=== PATIENT | female | born 1960 | race Caucasian/White ===

== ENCOUNTER 2019-02-23 11:01 | Inpatient (IN) | payer OTHER, SELFPAY ==
[2019-02-23 11:12] VITALS: BP 189/79; PULSE 83; RESP 20; TEMP 37.1; O2SAT 97
--- NOTE | 2019-02-23 11:18 | ED.ABDPAIN ---
HPI - Abdominal Pain <Marley Brown PA-C - Last Filed: 02/23/19 20:22> General Chief Complaint: Abdominal Pain Stated Complaint: nausea Time Seen by Provider: 02/23/19 11:05 Source: patient Mode of arrival: ambulatory Limitations: no limitations History of Present Illness HPI narrative: This 58-year-old female comes to ED due to epigastric pain and nausea. She states that she has some chronic epigastric discomfort (points to xiphoid area distal), which she describes as a pressure. Last night however after eating fast food, she states she had more persistent pain in that area and had nausea. She eventually forced herself to vomit thinking she would feel better, brought up some food stuck, 2nd time bilious. She states that she still has nausea today, vomited water once, 2nd time bilious material which she thinks was due to being in traffic. She has not eaten today. She denies pain in her chest or dyspnea. Denies any new pain or swelling in her extremities. She states that the discomfort she typically feels is like a pressure sensation but this is more painful and persistent. She denies any exacerbating or alleviating features. She has felt chilled, has not noted fever. She denies any change in bowel movements. She denies any urinary symptoms. She denies any rash, recent illness, travel or known exposures or other complaints on systems review. She denies any ongoing medical problems or cardiac history. Related Data Home Medications Medication Instructions Recorded Confirmed Calcium 1 tab PO DAILY 02/23/19 02/23/19 Vitamin D3 1 tab PO DAILY 02/23/19 02/23/19 aspirin 81 mg PO DAILY 02/23/19 02/23/19 iron 1 tab PO DAILY 02/23/19 02/23/19 Allergies Allergy/AdvReac Type Severity Reaction Status Date / Time hydrochlorothiazide AdvReac Mild Verified 02/23/19 14:06 Review of Systems <Marley Brown PA-C - Last Filed: 02/23/19 20:22> Review of Systems ROS Unobtainable: All systems reviewed & are unremarkable except as noted in HPI and below PFSH <CHI Carroll Last Filed: 02/23/19 20:22> Medical History No chronic problems (Chronic) Surgical History History of sleeve gastrectomy (Resolved) Status post total hysterectomy and bilateral salpingo-oophorectomy (BSO) (Resolved) Social History Smoking Status: Current some day smoker Social History household members: spouse Smoking Status: Current some day smoker Comment: Rare EtOH, no THC or street drugs Exam <Marley Brown PA-C - Last Filed: 02/23/19 20:22> Narrative Exam Narrative: GENERAL APPEARANCE: Patient sitting comfortably, in no distress. HEENT: PERRL, EOMI, no scleral icterus, conjunctivae pink, normal oropharynx NECK: Supple LUNGS: Clear to auscultation bilaterally. HEART: Rate and rhythm regular, normal S1 and S2, no S3 or S4. ABDOMEN: Soft, nondistended, bowel sounds present x 4 quadrants, no masses palpable, no hepatosplenomegaly. Tender along the midline from xiphoid distal to the umbilicus as well as right upper quadrant, +Napier's sign, no lower quadrant or left-sided tenderness EXTREMITIES: No edema, no calf tender DERMATOLOGIC: No jaundice or exanthem NEUROLOGIC: Alert and oriented with normal speech and coordination Initial Vital Signs Initial Vital Signs: Vital Signs Temperature 98.7 F 02/23/19 11:12 Pulse Rate 83 02/23/19 11:12 Respiratory Rate 20 02/23/19 11:12 Blood Pressure 189/79 H 02/23/19 11:12 Pulse Oximetry 97 02/23/19 11:12 <Sidra Hooks DO - Last Filed: 02/24/19 07:35> Initial Vital Signs Initial Vital Signs: Vital Signs Temperature 98.7 F 02/23/19 11:12 Pulse Rate 83 02/23/19 11:12 Respiratory Rate 20 02/23/19 11:12 Blood Pressure 189/79 H 02/23/19 11:12 Pulse Oximetry 97 02/23/19 11:12 Course <Marley Brown PA-C - Last Filed: 02/23/19 20:22> Additional Information: Dr. Cast station gateman for surgery has been to ED to evaluate patient, plans yenny for tomorrow, patient will be admitted to his service. Pain is currently well controlled and patient has not had any recurrent vomiting. Orders Ordered: ED Orders 02/24/19 04:44 Hepatic (Liver) Panel DAILY Lipase DAILY Hydromorphone HCl (Dilaudid) 0.5 mg IV Q4H PRN PRN Reason: Pain, Severe (7-10) Last Admin: 02/23/19 16:27 Dose: 0.5 mg Ampicillin Sodium/Sulbactam (Sodium 3 gm/ Sodium Chloride) 100 mls @ 100 mls/hr IV Q8H WILLIS Last Infusion: 02/24/19 05:56 Dose: 0 mls/hr Admin: 02/24/19 03:55 Dose: 100 mls/hr Infusion: 02/23/19 20:43 Dose: 100 mls/hr Admin: 02/23/19 19:43 Dose: 100 mls/hr Sodium Chloride (Normal Saline 0.9%) 1,000 mls @ 84 mls/hr IV CONT WILLIS Last Admin: 02/24/19 05:56 Dose: 84 mls/hr Infusion: 02/24/19 03:25 Dose: 84 mls/hr Admin: 02/23/19 15:30 Dose: 84 mls/hr Ondansetron HCl (Zofran) 4 mg IV Q6HR PRN PRN Reason: Nausea And Vomiting Discontinued Medications Al Hydrox/Mg Hydrox/Simethicone 20 ml/ Lidocaine HCl 15 ml 0 ml PO NOW ONE Stop: 02/23/19 11:19 Last Admin: 02/23/19 11:43 Dose: 35 ml Sodium Chloride (Normal Saline 0.9%) 1,000 mls @ 1,000 mls/hr IV BOLUS ONE Stop: 02/23/19 12:17 Last Infusion: 02/23/19 15:29 Dose: 0 mls/hr Infusion: 02/23/19 13:53 Dose: 1,000 mls/hr Admin: 02/23/19 11:43 Dose: 1,000 mls/hr Ampicillin Sodium/Sulbactam (Sodium 1.5 gm/ Sodium Chloride) 100 mls @ 100 mls/hr IV NOW ONE Stop: 02/23/19 12:54 Last Infusion: 02/23/19 15:29 Dose: 0 mls/hr Admin: 02/23/19 13:50 Dose: 100 mls/hr Ketorolac Tromethamine (Toradol) 30 mg IV NOW ONE Stop: 02/23/19 11:19 Last Admin: 02/23/19 11:43 Dose: 30 mg Ondansetron HCl (Zofran) 4 mg IV NOW ONE Stop: 02/23/19 11:19 Last Admin: 02/23/19 11:43 Dose: 4 mg Vital Signs - 8 hr 02/24/19 01:30 02/24/19 05:01 02/24/19 07:26 Temperature 98.3 F 97.6 F 97.5 F L Pulse Rate 84 68 65 Respiratory Rate 16 16 18 Blood Pressure 140/52 L 148/63 H 157/64 H Pulse Oximetry 97 95 95 <Sidra Hooks DO - Last Filed: 02/24/19 07:35> Orders Ordered: ED Orders 02/24/19 04:44 Hepatic (Liver) Panel DAILY Lipase DAILY Hydromorphone HCl (Dilaudid) 0.5 mg IV Q4H PRN PRN Reason: Pain, Severe (7-10) Last Admin: 02/23/19 16:27 Dose: 0.5 mg Ampicillin Sodium/Sulbactam (Sodium 3 gm/ Sodium Chloride) 100 mls @ 100 mls/hr IV Q8H [facility] Last Infusion: 02/24/19 05:56 Dose: 0 mls/hr Admin: 02/24/19 03:55 Dose: 100 mls/hr Infusion: 02/23/19 20:43 Dose: 100 mls/hr Admin: 02/23/19 19:43 Dose: 100 mls/hr Sodium Chloride (Normal Saline 0.9%) 1,000 mls @ 84 mls/hr IV CONT WILLIS Last Admin: 02/24/19 05:56 Dose: 84 mls/hr Infusion: 02/24/19 03:25 Dose: 84 mls/hr Admin: 02/23/19 15:30 Dose: 84 mls/hr Ondansetron HCl (Zofran) 4 mg IV Q6HR PRN PRN Reason: Nausea And Vomiting Discontinued Medications Al Hydrox/Mg Hydrox/Simethicone 20 ml/ Lidocaine HCl 15 ml 0 ml PO NOW ONE Stop: 02/23/19 11:19 Last Admin: 02/23/19 11:43 Dose: 35 ml Sodium Chloride (Normal Saline 0.9%) 1,000 mls @ 1,000 mls/hr IV BOLUS ONE Stop: 02/23/19 12:17 Last Infusion: 02/23/19 15:29 Dose: 0 mls/hr Infusion: 02/23/19 13:53 Dose: 1,000 mls/hr Admin: 02/23/19 11:43 Dose: 1,000 mls/hr Ampicillin Sodium/Sulbactam (Sodium 1.5 gm/ Sodium Chloride) 100 mls @ 100 mls/hr IV NOW ONE Stop: 02/23/19 12:54 Last Infusion: 02/23/19 15:29 Dose: 0 mls/hr Admin: 02/23/19 13:50 Dose: 100 mls/hr Ketorolac Tromethamine (Toradol) 30 mg IV NOW ONE Stop: 02/23/19 11:19 Last Admin: 02/23/19 11:43 Dose: 30 mg Ondansetron HCl (Zofran) 4 mg IV NOW ONE Stop: 02/23/19 11:19 Last Admin: 02/23/19 11:43 Dose: 4 mg Vital Signs - 8 hr 02/24/19 01:30 02/24/19 05:01 02/24/19 07:26 Temperature 98.3 F 97.6 F 97.5 F L Pulse Rate 84 68 65 Respiratory Rate 16 16 18 Blood Pressure 140/52 L 148/63 H 157/64 H Pulse Oximetry 97 95 95 MDM - Abdominal Pain <Marley Brown PA-C - Last Filed: 02/23/19 20:22> Lab Data Attestation: I reviewed the patient's lab results. Result diagrams: 02/23/19 11:25 02/23/19 11:25 Lab Results 02/23/19 02/23/19 02/23/19 Range/Units 11:25 11:25 11:25 WBC 8.5 (4.5-11.0) X10^3/uL RBC 4.88 (4.0-5.2) X10^6/uL Hgb 14.7 (12.0-16.0) g/dL Hct 44.6 (36-46) % MCV 91.4 (80-100) fL MCH 30.2 (26-34) PG MCHC 33.1 (30-36) % RDW 13.1 (11.6-14.8) % Plt Count 246 (150-400) X10^3/uL Neut % (Auto) 86.3 H (50-75) % Lymph % (Auto) 7.8 L (25-40) % [place] % (Auto) 5.5 (3-14) % Eos % (Auto) 0.0 L (2-4) % Baso % (Auto) 0.4 (0-2) % Neut # (Auto) 7300 H (5296-6427) /uL Lymph # (Auto) 700 L (6528-9728) /uL [place] # (Auto) 500 (0-900) /uL Eos # (Auto) 0 (0-450) /uL Baso # (Auto) 0 (0-100) /uL Sodium 140 (137-145) mmol/L Potassium 3.8 (3.4-5.1) mmol/L Chloride 103 (98-107) mmol/L Carbon Dioxide 29 (22-32) mmol/L BUN 12 (7-17) mg/dL Creatinine 0.70 (0.52-1.04) mg/dL Estimated GFR > 60.0 (>60) mL/min BUN/Creatinine Ratio 17.1 (6-22) Glucose 114 H (80-110) mg/dL Calcium 9.2 (8.4-10.2) mg/dL Total Bilirubin 0.4 (0.2-1.3) mg/dL Conjugated Bilirubin (0.0-0.3) md/dL Unconjugated Bilirubin (0.0-1.1) mg/dL AST 26 (14-36) IU/L ALT 26 (9-52) IU/L Alkaline Phosphatase 55 (38-126) U/L Total Creatine Kinase 81 (30-135) U/L CK-MB (CK-2) TNP CK-MB (CK-2) Rel Index TNP Troponin I < 0.012 (0.01-0.034) ng/mL Total Protein 6.9 (6.3-8.2) g/dL Albumin 4.2 (3.5-5.0) g/dL Globulin 2.7 (1.7-4.1) g/dL Albumin/Globulin Ratio 1.6 (1.0-2.8) Amylase 97 (30-110) U/L Lipase 1341 H (23-300) U/L Urine RBC (0-5/HPF) Urine WBC (0-5/HPF) Urine Bacteria (None) Ur Culture Indicated? Micro UA Comment Nasal Screen MRSA (PCR) (Negative) 02/23/19 02/23/19 02/24/19 Range/Units 12:05 14:00 04:44 WBC (4.5-11.0) X10^3/uL RBC (4.0-5.2) X10^6/uL Hgb (12.0-16.0) g/dL Hct (36-46) % MCV (80-100) fL MCH (26-34) PG MCHC (30-36) % RDW (11.6-14.8) % Plt Count (150-400) X10^3/uL Neut % (Auto) (50-75) % Lymph % (Auto) (25-40) % [place] % (Auto) (3-14) % Eos % (Auto) (2-4) % Baso % (Auto) (0-2) % Neut # (Auto) (4734-6100) /uL Lymph # (Auto) (9096-9001) /uL [place] # (Auto) (0-900) /uL Eos # (Auto) (0-450) /uL Baso # (Auto) (0-100) /uL Sodium (137-145) mmol/L Potassium (3.4-5.1) mmol/L Chloride (98-107) mmol/L Carbon Dioxide (22-32) mmol/L BUN (7-17) mg/dL Creatinine (0.52-1.04) mg/dL Estimated GFR (>60) mL/min BUN/Creatinine Ratio (6-22) Glucose (80-110) mg/dL Calcium (8.4-10.2) mg/dL Total Bilirubin 0.5 (0.2-1.3) mg/dL Conjugated Bilirubin 0.0 (0.0-0.3) md/dL Unconjugated Bilirubin 0.4 (0.0-1.1) mg/dL AST 21 (14-36) IU/L ALT 25 (9-52) IU/L Alkaline Phosphatase 44 (38-126) U/L Total Creatine Kinase (30-135) U/L CK-MB (CK-2) CK-MB (CK-2) Rel Index Troponin I (0.01-0.034) ng/mL Total Protein 5.5 L (6.3-8.2) g/dL Albumin 3.1 L (3.5-5.0) g/dL Globulin 2.4 (1.7-4.1) g/dL Albumin/Globulin Ratio 1.3 (1.0-2.8) Amylase (30-110) U/L Lipase 68 D (23-300) U/L Urine RBC None seen (0-5/HPF) Urine WBC None seen (0-5/HPF) Urine Bacteria None seen (None) Ur Culture Indicated? Cult not indicated Micro UA Comment Microscopic normal Nasal Screen MRSA (PCR) Negative for mrsa (Negative) Point of care testing: Urine Dip Bedside Urine Glucose Negative Bedside Urine Bilirubin - Negative Bedside Urine Ketone ++ 40 Urine Specific [place] 1.025 Bedside Urine Occult Blood - Negative Bedside Urine pH 6.0 Bedside Urine Protein +/- 15 Bedside Urine Urobilinogen +/- 1mg Bedside Urine Nitrite - Negative Bedside Urine Leukocytes - Negative Esterase Imaging Data US - abdomen: Radiologist's impression: Katherin Rizvi 58 F 1960 [place] [address] Ultrasound Report Signed Patient: Katherin Rizvi LMR#: [id number] : 1960cct:[id number] Age/Sex: 58 / FDate of Service: 02/23/19 Loc: ED Accession Number: [id number] Procedure: US abdomen limited Ordering Provider: Marley Brown P.A-C PROCEDURE: US ABDOMEN LIMITED INDICATIONS: VOMITING, EPIGASTRIC/RUQ PAIN TECHNIQUE: Real-time focused scanning was performed of the abdomen, with image documentation. COMPARISON: None. FINDINGS: There is a stone within the gallbladder neck measuring up to 2.7 cm, and also sludge may be present a small degree. The gallbladder wall is abnormally thickened at 4.2 L. The liver is mildly enlarged at 19.2 cm craniocaudad. IMPRESSION: Impacted large stone measuring up to 2.7 cm at the gallbladder neck area, with evidence of mild acute cholecystitis. Mild hepatomegaly. Dictated by: Connor Hu M.D. on 02/23/2019 at 12:43 Approved by: Connor Hu M.D. on 02/23/2019 at 12:43 Chest x-ray: Radiologist's impression: [address] [address] XRay Report Signed Patient: Katherin Rizvi LMR#: [id number] : 9Acct:[id number] Age/Sex: 58 / FDate of Service: 02/23/19 Loc: ED Accession Number: [id number] Procedure: XR acute abdomen series Ordering Provider: Marley Brown P.A-C PROCEDURE: XR ACUTE ABDOMEN SERIES INDICATIONS: vomiting epigastric pain TECHNIQUE: One view chest and two views of the abdomen were acquired. COMPARISON: None. FINDINGS: Surgical changes and devices: None. Chest: Lungs are clear. Heart size is normal. No pleural effusions. No pneumoperitoneum. Abdomen: Bowel gas pattern is normal. No suspicious calcifications. Visualized solid organ contours appear normal. Bones: No suspicious bony lesions. IMPRESSION: Normal for age, source of current epigastric pain symptoms is not seen. Dictated by: Connor Hu M.D. on 02/23/2019 at 12:42 Approved by: Connor Hu M.D. on 02/23/2019 at 12:42 ECG Data Attestation: I personally reviewed and interpreted this ECG as follows: (Sinus bradycardia, rate 57, normal axis) <Sidra Hooks DO - Last Filed: 02/24/19 07:35> Lab Data Lab Results 02/23/19 02/23/19 02/23/19 Range/Units 11:25 11:25 11:25 WBC 8.5 (4.5-11.0) X10^3/uL RBC 4.88 (4.0-5.2) X10^6/uL Hgb 14.7 (12.0-16.0) g/dL Hct 44.6 (36-46) % MCV 91.4 (80-100) fL MCH 30.2 (26-34) PG MCHC 33.1 (30-36) % RDW 13.1 (11.6-14.8) % Plt Count 246 (150-400) X10^3/uL Neut % (Auto) 86.3 H (50-75) % Lymph % (Auto) 7.8 L (25-40) % [place] % (Auto) 5.5 (3-14) % Eos % (Auto) 0.0 L (2-4) % Baso % (Auto) 0.4 (0-2) % Neut # (Auto) 7300 H (9589-7431) /uL Lymph # (Auto) 700 L (0819-4896) /uL [place] # (Auto) 500 (0-900) /uL Eos # (Auto) 0 (0-450) /uL Baso # (Auto) 0 (0-100) /uL Sodium 140 (137-145) mmol/L Potassium 3.8 (3.4-5.1) mmol/L Chloride 103 (98-107) mmol/L Carbon Dioxide 29 (22-32) mmol/L BUN 12 (7-17) mg/dL Creatinine 0.70 (0.52-1.04) mg/dL Estimated GFR > 60.0 (>60) mL/min BUN/Creatinine Ratio 17.1 (6-22) Glucose 114 H (80-110) mg/dL Calcium 9.2 (8.4-10.2) mg/dL Total Bilirubin 0.4 (0.2-1.3) mg/dL Conjugated Bilirubin (0.0-0.3) md/dL Unconjugated Bilirubin (0.0-1.1) mg/dL AST 26 (14-36) IU/L ALT 26 (9-52) IU/L Alkaline Phosphatase 55 (38-126) U/L Total Creatine Kinase 81 (30-135) U/L CK-MB (CK-2) TNP CK-MB (CK-2) Rel Index TNP Troponin I < 0.012 (0.01-0.034) ng/mL Total Protein 6.9 (6.3-8.2) g/dL Albumin 4.2 (3.5-5.0) g/dL Globulin 2.7 (1.7-4.1) g/dL Albumin/Globulin Ratio 1.6 (1.0-2.8) Amylase 97 (30-110) U/L Lipase 1341 H (23-300) U/L Urine RBC (0-5/HPF) Urine WBC (0-5/HPF) Urine Bacteria (None) Ur Culture Indicated? Micro UA Comment Nasal Screen MRSA (PCR) (Negative) 02/23/19 02/23/19 02/24/19 Range/Units 12:05 14:00 04:44 WBC (4.5-11.0) X10^3/uL RBC (4.0-5.2) X10^6/uL Hgb (12.0-16.0) g/dL Hct (36-46) % MCV (80-100) fL MCH (26-34) PG MCHC (30-36) % RDW (11.6-14.8) % Plt Count (150-400) X10^3/uL Neut % (Auto) (50-75) % Lymph % (Auto) (25-40) % [place] % (Auto) (3-14) % Eos % (Auto) (2-4) % Baso % (Auto) (0-2) % Neut # (Auto) (7864-6817) /uL Lymph # (Auto) (8337-6922) /uL [place] # (Auto) (0-900) /uL Eos # (Auto) (0-450) /uL Baso # (Auto) (0-100) /uL Sodium (137-145) mmol/L Potassium (3.4-5.1) mmol/L Chloride (98-107) mmol/L Carbon Dioxide (22-32) mmol/L BUN (7-17) mg/dL Creatinine (0.52-1.04) mg/dL Estimated GFR (>60) mL/min BUN/Creatinine Ratio (6-22) Glucose (80-110) mg/dL Calcium (8.4-10.2) mg/dL Total Bilirubin 0.5 (0.2-1.3) mg/dL Conjugated Bilirubin 0.0 (0.0-0.3) md/dL Unconjugated Bilirubin 0.4 (0.0-1.1) mg/dL AST 21 (14-36) IU/L ALT 25 (9-52) IU/L Alkaline Phosphatase 44 (38-126) U/L Total Creatine Kinase (30-135) U/L CK-MB (CK-2) CK-MB (CK-2) Rel Index Troponin I (0.01-0.034) ng/mL Total Protein 5.5 L (6.3-8.2) g/dL Albumin 3.1 L (3.5-5.0) g/dL Globulin 2.4 (1.7-4.1) g/dL Albumin/Globulin Ratio 1.3 (1.0-2.8) Amylase (30-110) U/L Lipase 68 D (23-300) U/L Urine RBC None seen (0-5/HPF) Urine WBC None seen (0-5/HPF) Urine Bacteria None seen (None) Ur Culture Indicated? Cult not indicated Micro UA Comment Microscopic normal Nasal Screen MRSA (PCR) Negative for mrsa (Negative) Point of care testing: Urine Dip Bedside Urine Glucose Negative Bedside Urine Bilirubin - Negative Bedside Urine Ketone ++ 40 Urine Specific [place] 1.025 Bedside Urine Occult Blood - Negative Bedside Urine pH 6.0 Bedside Urine Protein +/- 15 Bedside Urine Urobilinogen +/- 1mg Bedside Urine Nitrite - Negative Bedside Urine Leukocytes - Negative Esterase Discharge Plan Departure Patient Disposition: Admitted As Inpatient Clinical Impression: Cholelithiasis and acute cholecystitis with obstruction Discharge Date/Time: 02/23/19 13:55 Interventions: ED Discharge Assessment Last Done: 02/23/19 13:54 Admit Date/Time: 02/23/19 13:25 Admit Provider: Kris Cast <Sidra Hooks DO - Last Filed: 02/24/19 07:35> Cosign ED Attending Alexeyature Attestation: I was immediately available in the department for consultation. Documentation has been reviewed. I agree with assessment and plan.
--- NOTE | 2019-02-23 11:23 | ED_ITS ---
HPI - Abdominal Pain <Marley Brown PA-C - Last Filed: 02/23/19 20:22> General Chief Complaint: Abdominal Pain Stated Complaint: nausea Time Seen by Provider: 02/23/19 11:05 Source: patient Mode of arrival: ambulatory Limitations: no limitations History of Present Illness HPI narrative: This 58-year-old female comes to ED due to epigastric pain and nausea. She states that she has some chronic epigastric discomfort (points to xiphoid area distal), which she describes as a pressure. Last night however after eating fast food, she states she had more persistent pain in that area and had nausea. She eventually forced herself to vomit thinking she would feel better, brought up some food stuck, 2nd time bilious. She states that she still has nausea today, vomited water once, 2nd time bilious material which she thinks was due to being in traffic. She has not eaten today. She denies pain in her chest or dyspnea. Denies any new pain or swelling in her extremities. She states that the discomfort she typically feels is like a pressure sensation but this is more painful and persistent. She denies any exacerbating or alleviating features. She has felt chilled, has not noted fever. She denies any change in bowel movements. She denies any urinary symptoms. She denies any rash, recent illness, travel or known exposures or other complaints on systems review. She denies any ongoing medical problems or cardiac history. Related Data Home Medications Medication Instructions Recorded Confirmed Calcium 1 tab PO DAILY 02/23/19 02/23/19 Vitamin D3 1 tab PO DAILY 02/23/19 02/23/19 aspirin 81 mg PO DAILY 02/23/19 02/23/19 iron 1 tab PO DAILY 02/23/19 02/23/19 Allergies Allergy/AdvReac Type Severity Reaction Status Date / Time hydrochlorothiazide AdvReac Mild Verified 02/23/19 14:06 Review of Systems <Marley Brown PA-C - Last Filed: 02/23/19 20:22> Review of Systems ROS Unobtainable: All systems reviewed & are unremarkable except as noted in HPI and below PFSH <CHI Carroll Last Filed: 02/23/19 20:22> Medical History No chronic problems (Chronic) Surgical History History of sleeve gastrectomy (Resolved) Status post total hysterectomy and bilateral salpingo-oophorectomy (BSO) (Resolved) Social History Smoking Status: Current some day smoker Social History household members: spouse Smoking Status: Current some day smoker Comment: Rare EtOH, no THC or street drugs Exam <Marley Brown PA-C - Last Filed: 02/23/19 20:22> Narrative Exam Narrative: GENERAL APPEARANCE: Patient sitting comfortably, in no distress. HEENT: PERRL, EOMI, no scleral icterus, conjunctivae pink, normal oropharynx NECK: Supple LUNGS: Clear to auscultation bilaterally. HEART: Rate and rhythm regular, normal S1 and S2, no S3 or S4. ABDOMEN: Soft, nondistended, bowel sounds present x 4 quadrants, no masses palpable, no hepatosplenomegaly. Tender along the midline from xiphoid distal to the umbilicus as well as right upper quadrant, +Napier's sign, no lower quadrant or left-sided tenderness EXTREMITIES: No edema, no calf tender DERMATOLOGIC: No jaundice or exanthem NEUROLOGIC: Alert and oriented with normal speech and coordination Initial Vital Signs Initial Vital Signs: Vital Signs Temperature 98.7 F 02/23/19 11:12 Pulse Rate 83 02/23/19 11:12 Respiratory Rate 20 02/23/19 11:12 Blood Pressure 189/79 H 02/23/19 11:12 Pulse Oximetry 97 02/23/19 11:12 <Sidra Hooks DO - Last Filed: 02/24/19 07:35> Initial Vital Signs Initial Vital Signs: Vital Signs Temperature 98.7 F 02/23/19 11:12 Pulse Rate 83 02/23/19 11:12 Respiratory Rate 20 02/23/19 11:12 Blood Pressure 189/79 H 02/23/19 11:12 Pulse Oximetry 97 02/23/19 11:12 Course <Marley Brown PA-C - Last Filed: 02/23/19 20:22> Additional Information: Dr. Cast rn clinical documentation specialist for surgery has been to ED to evaluate patient, plans yenny for tomorrow, patient will be admitted to his service. Pain is currently well controlled and patient has not had any recurrent vomiting. Orders Ordered: ED Orders 02/24/19 04:44 Hepatic (Liver) Panel DAILY Lipase DAILY Hydromorphone HCl (Dilaudid) 0.5 mg IV Q4H PRN PRN Reason: Pain, Severe (7-10) Last Admin: 02/23/19 16:27 Dose: 0.5 mg Ampicillin Sodium/Sulbactam (Sodium 3 gm/ Sodium Chloride) 100 mls @ 100 mls/hr IV Q8H WILLIS Last Infusion: 02/24/19 05:56 Dose: 0 mls/hr Admin: 02/24/19 03:55 Dose: 100 mls/hr Infusion: 02/23/19 20:43 Dose: 100 mls/hr Admin: 02/23/19 19:43 Dose: 100 mls/hr Sodium Chloride (Normal Saline 0.9%) 1,000 mls @ 84 mls/hr IV CONT WILLIS Last Admin: 02/24/19 05:56 Dose: 84 mls/hr Infusion: 02/24/19 03:25 Dose: 84 mls/hr Admin: 02/23/19 15:30 Dose: 84 mls/hr Ondansetron HCl (Zofran) 4 mg IV Q6HR PRN PRN Reason: Nausea And Vomiting Discontinued Medications Al Hydrox/Mg Hydrox/Simethicone 20 ml/ Lidocaine HCl 15 ml 0 ml PO NOW ONE Stop: 02/23/19 11:19 Last Admin: 02/23/19 11:43 Dose: 35 ml Sodium Chloride (Normal Saline 0.9%) 1,000 mls @ 1,000 mls/hr IV BOLUS ONE Stop: 02/23/19 12:17 Last Infusion: 02/23/19 15:29 Dose: 0 mls/hr Infusion: 02/23/19 13:53 Dose: 1,000 mls/hr Admin: 02/23/19 11:43 Dose: 1,000 mls/hr Ampicillin Sodium/Sulbactam (Sodium 1.5 gm/ Sodium Chloride) 100 mls @ 100 mls/hr IV NOW ONE Stop: 02/23/19 12:54 Last Infusion: 02/23/19 15:29 Dose: 0 mls/hr Admin: 02/23/19 13:50 Dose: 100 mls/hr Ketorolac Tromethamine (Toradol) 30 mg IV NOW ONE Stop: 02/23/19 11:19 Last Admin: 02/23/19 11:43 Dose: 30 mg Ondansetron HCl (Zofran) 4 mg IV NOW ONE Stop: 02/23/19 11:19 Last Admin: 02/23/19 11:43 Dose: 4 mg Vital Signs - 8 hr 02/24/19 01:30 02/24/19 05:01 02/24/19 07:26 Temperature 98.3 F 97.6 F 97.5 F L Pulse Rate 84 68 65 Respiratory Rate 16 16 18 Blood Pressure 140/52 L 148/63 H 157/64 H Pulse Oximetry 97 95 95 <Sidra Hooks DO - Last Filed: 02/24/19 07:35> Orders Ordered: ED Orders 02/24/19 04:44 Hepatic (Liver) Panel DAILY Lipase DAILY Hydromorphone HCl (Dilaudid) 0.5 mg IV Q4H PRN PRN Reason: Pain, Severe (7-10) Last Admin: 02/23/19 16:27 Dose: 0.5 mg Ampicillin Sodium/Sulbactam (Sodium 3 gm/ Sodium Chloride) 100 mls @ 100 mls/hr IV Q8H [facility] Last Infusion: 02/24/19 05:56 Dose: 0 mls/hr Admin: 02/24/19 03:55 Dose: 100 mls/hr Infusion: 02/23/19 20:43 Dose: 100 mls/hr Admin: 02/23/19 19:43 Dose: 100 mls/hr Sodium Chloride (Normal Saline 0.9%) 1,000 mls @ 84 mls/hr IV CONT WILLIS Last Admin: 02/24/19 05:56 Dose: 84 mls/hr Infusion: 02/24/19 03:25 Dose: 84 mls/hr Admin: 02/23/19 15:30 Dose: 84 mls/hr Ondansetron HCl (Zofran) 4 mg IV Q6HR PRN PRN Reason: Nausea And Vomiting Discontinued Medications Al Hydrox/Mg Hydrox/Simethicone 20 ml/ Lidocaine HCl 15 ml 0 ml PO NOW ONE Stop: 02/23/19 11:19 Last Admin: 02/23/19 11:43 Dose: 35 ml Sodium Chloride (Normal Saline 0.9%) 1,000 mls @ 1,000 mls/hr IV BOLUS ONE Stop: 02/23/19 12:17 Last Infusion: 02/23/19 15:29 Dose: 0 mls/hr Infusion: 02/23/19 13:53 Dose: 1,000 mls/hr Admin: 02/23/19 11:43 Dose: 1,000 mls/hr Ampicillin Sodium/Sulbactam (Sodium 1.5 gm/ Sodium Chloride) 100 mls @ 100 mls/hr IV NOW ONE Stop: 02/23/19 12:54 Last Infusion: 02/23/19 15:29 Dose: 0 mls/hr Admin: 02/23/19 13:50 Dose: 100 mls/hr Ketorolac Tromethamine (Toradol) 30 mg IV NOW ONE Stop: 02/23/19 11:19 Last Admin: 02/23/19 11:43 Dose: 30 mg Ondansetron HCl (Zofran) 4 mg IV NOW ONE Stop: 02/23/19 11:19 Last Admin: 02/23/19 11:43 Dose: 4 mg Vital Signs - 8 hr 02/24/19 01:30 02/24/19 05:01 02/24/19 07:26 Temperature 98.3 F 97.6 F 97.5 F L Pulse Rate 84 68 65 Respiratory Rate 16 16 18 Blood Pressure 140/52 L 148/63 H 157/64 H Pulse Oximetry 97 95 95 MDM - Abdominal Pain <Marley Brown PA-C - Last Filed: 02/23/19 20:22> Lab Data Attestation: I reviewed the patient's lab results. Result diagrams: 02/23/19 11:25 02/23/19 11:25 Lab Results 02/23/19 02/23/19 02/23/19 Range/Units 11:25 11:25 11:25 WBC 8.5 (4.5-11.0) X10^3/uL RBC 4.88 (4.0-5.2) X10^6/uL Hgb 14.7 (12.0-16.0) g/dL Hct 44.6 (36-46) % MCV 91.4 (80-100) fL MCH 30.2 (26-34) PG MCHC 33.1 (30-36) % RDW 13.1 (11.6-14.8) % Plt Count 246 (150-400) X10^3/uL Neut % (Auto) 86.3 H (50-75) % Lymph % (Auto) 7.8 L (25-40) % [place] % (Auto) 5.5 (3-14) % Eos % (Auto) 0.0 L (2-4) % Baso % (Auto) 0.4 (0-2) % Neut # (Auto) 7300 H (9298-6415) /uL Lymph # (Auto) 700 L (3828-6089) /uL [place] # (Auto) 500 (0-900) /uL Eos # (Auto) 0 (0-450) /uL Baso # (Auto) 0 (0-100) /uL Sodium 140 (137-145) mmol/L Potassium 3.8 (3.4-5.1) mmol/L Chloride 103 (98-107) mmol/L Carbon Dioxide 29 (22-32) mmol/L BUN 12 (7-17) mg/dL Creatinine 0.70 (0.52-1.04) mg/dL Estimated GFR > 60.0 (>60) mL/min BUN/Creatinine Ratio 17.1 (6-22) Glucose 114 H (80-110) mg/dL Calcium 9.2 (8.4-10.2) mg/dL Total Bilirubin 0.4 (0.2-1.3) mg/dL Conjugated Bilirubin (0.0-0.3) md/dL Unconjugated Bilirubin (0.0-1.1) mg/dL AST 26 (14-36) IU/L ALT 26 (9-52) IU/L Alkaline Phosphatase 55 (38-126) U/L Total Creatine Kinase 81 (30-135) U/L CK-MB (CK-2) TNP CK-MB (CK-2) Rel Index TNP Troponin I < 0.012 (0.01-0.034) ng/mL Total Protein 6.9 (6.3-8.2) g/dL Albumin 4.2 (3.5-5.0) g/dL Globulin 2.7 (1.7-4.1) g/dL Albumin/Globulin Ratio 1.6 (1.0-2.8) Amylase 97 (30-110) U/L Lipase 1341 H (23-300) U/L Urine RBC (0-5/HPF) Urine WBC (0-5/HPF) Urine Bacteria (None) Ur Culture Indicated? Micro UA Comment Nasal Screen MRSA (PCR) (Negative) 02/23/19 02/23/19 02/24/19 Range/Units 12:05 14:00 04:44 WBC (4.5-11.0) X10^3/uL RBC (4.0-5.2) X10^6/uL Hgb (12.0-16.0) g/dL Hct (36-46) % MCV (80-100) fL MCH (26-34) PG MCHC (30-36) % RDW (11.6-14.8) % Plt Count (150-400) X10^3/uL Neut % (Auto) (50-75) % Lymph % (Auto) (25-40) % [place] % (Auto) (3-14) % Eos % (Auto) (2-4) % Baso % (Auto) (0-2) % Neut # (Auto) (3260-0768) /uL Lymph # (Auto) (5676-2828) /uL [place] # (Auto) (0-900) /uL Eos # (Auto) (0-450) /uL Baso # (Auto) (0-100) /uL Sodium (137-145) mmol/L Potassium (3.4-5.1) mmol/L Chloride (98-107) mmol/L Carbon Dioxide (22-32) mmol/L BUN (7-17) mg/dL Creatinine (0.52-1.04) mg/dL Estimated GFR (>60) mL/min BUN/Creatinine Ratio (6-22) Glucose (80-110) mg/dL Calcium (8.4-10.2) mg/dL Total Bilirubin 0.5 (0.2-1.3) mg/dL Conjugated Bilirubin 0.0 (0.0-0.3) md/dL Unconjugated Bilirubin 0.4 (0.0-1.1) mg/dL AST 21 (14-36) IU/L ALT 25 (9-52) IU/L Alkaline Phosphatase 44 (38-126) U/L Total Creatine Kinase (30-135) U/L CK-MB (CK-2) CK-MB (CK-2) Rel Index Troponin I (0.01-0.034) ng/mL Total Protein 5.5 L (6.3-8.2) g/dL Albumin 3.1 L (3.5-5.0) g/dL Globulin 2.4 (1.7-4.1) g/dL Albumin/Globulin Ratio 1.3 (1.0-2.8) Amylase (30-110) U/L Lipase 68 D (23-300) U/L Urine RBC None seen (0-5/HPF) Urine WBC None seen (0-5/HPF) Urine Bacteria None seen (None) Ur Culture Indicated? Cult not indicated Micro UA Comment Microscopic normal Nasal Screen MRSA (PCR) Negative for mrsa (Negative) Point of care testing: Urine Dip Bedside Urine Glucose Negative Bedside Urine Bilirubin - Negative Bedside Urine Ketone ++ 40 Urine Specific [place] 1.025 Bedside Urine Occult Blood - Negative Bedside Urine pH 6.0 Bedside Urine Protein +/- 15 Bedside Urine Urobilinogen +/- 1mg Bedside Urine Nitrite - Negative Bedside Urine Leukocytes - Negative Esterase Imaging Data US - abdomen: Radiologist's impression: Katherin Rizvi 58 F 1960 [place] [address] Ultrasound Report Signed Patient: Katherin Rizvi LMR#: [id number] : 1960cct:[id number] Age/Sex: 58 / FDate of Service: 02/23/19 Loc: ED Accession Number: [id number] Procedure: US abdomen limited Ordering Provider: Marley Brown P.A-C PROCEDURE: US ABDOMEN LIMITED INDICATIONS: VOMITING, EPIGASTRIC/RUQ PAIN TECHNIQUE: Real-time focused scanning was performed of the abdomen, with image documentation. COMPARISON: None. FINDINGS: There is a stone within the gallbladder neck measuring up to 2.7 cm, and also sludge may be present a small degree. The gallbladder wall is abnormally thickened at 4.2 L. The liver is mildly enlarged at 19.2 cm craniocaudad. IMPRESSION: Impacted large stone measuring up to 2.7 cm at the gallbladder neck area, with evidence of mild acute cholecystitis. Mild hepatomegaly. Dictated by: Connor Hu M.D. on 02/23/2019 at 12:43 Approved by: Connor Hu M.D. on 02/23/2019 at 12:43 Chest x-ray: Radiologist's impression: [address] [address] XRay Report Signed Patient: Katherin Rizvi LMR#: [id number] : 9Acct:[id number] Age/Sex: 58 / FDate of Service: 02/23/19 Loc: ED Accession Number: [id number] Procedure: XR acute abdomen series Ordering Provider: Marley Brown P.A-C PROCEDURE: XR ACUTE ABDOMEN SERIES INDICATIONS: vomiting epigastric pain TECHNIQUE: One view chest and two views of the abdomen were acquired. COMPARISON: None. FINDINGS: Surgical changes and devices: None. Chest: Lungs are clear. Heart size is normal. No pleural effusions. No pneumoperitoneum. Abdomen: Bowel gas pattern is normal. No suspicious calcifications. Visualized solid organ contours appear normal. Bones: No suspicious bony lesions. IMPRESSION: Normal for age, source of current epigastric pain symptoms is not seen. Dictated by: Connor Hu M.D. on 02/23/2019 at 12:42 Approved by: Connor Hu M.D. on 02/23/2019 at 12:42 ECG Data Attestation: I personally reviewed and interpreted this ECG as follows: (Sinus bradycardia, rate 57, normal axis) <Sidra Hooks DO - Last Filed: 02/24/19 07:35> Lab Data Lab Results 02/23/19 02/23/19 02/23/19 Range/Units 11:25 11:25 11:25 WBC 8.5 (4.5-11.0) X10^3/uL RBC 4.88 (4.0-5.2) X10^6/uL Hgb 14.7 (12.0-16.0) g/dL Hct 44.6 (36-46) % MCV 91.4 (80-100) fL MCH 30.2 (26-34) PG MCHC 33.1 (30-36) % RDW 13.1 (11.6-14.8) % Plt Count 246 (150-400) X10^3/uL Neut % (Auto) 86.3 H (50-75) % Lymph % (Auto) 7.8 L (25-40) % [place] % (Auto) 5.5 (3-14) % Eos % (Auto) 0.0 L (2-4) % Baso % (Auto) 0.4 (0-2) % Neut # (Auto) 7300 H (7681-1745) /uL Lymph # (Auto) 700 L (3011-6324) /uL [place] # (Auto) 500 (0-900) /uL Eos # (Auto) 0 (0-450) /uL Baso # (Auto) 0 (0-100) /uL Sodium 140 (137-145) mmol/L Potassium 3.8 (3.4-5.1) mmol/L Chloride 103 (98-107) mmol/L Carbon Dioxide 29 (22-32) mmol/L BUN 12 (7-17) mg/dL Creatinine 0.70 (0.52-1.04) mg/dL Estimated GFR > 60.0 (>60) mL/min BUN/Creatinine Ratio 17.1 (6-22) Glucose 114 H (80-110) mg/dL Calcium 9.2 (8.4-10.2) mg/dL Total Bilirubin 0.4 (0.2-1.3) mg/dL Conjugated Bilirubin (0.0-0.3) md/dL Unconjugated Bilirubin (0.0-1.1) mg/dL AST 26 (14-36) IU/L ALT 26 (9-52) IU/L Alkaline Phosphatase 55 (38-126) U/L Total Creatine Kinase 81 (30-135) U/L CK-MB (CK-2) TNP CK-MB (CK-2) Rel Index TNP Troponin I < 0.012 (0.01-0.034) ng/mL Total Protein 6.9 (6.3-8.2) g/dL Albumin 4.2 (3.5-5.0) g/dL Globulin 2.7 (1.7-4.1) g/dL Albumin/Globulin Ratio 1.6 (1.0-2.8) Amylase 97 (30-110) U/L Lipase 1341 H (23-300) U/L Urine RBC (0-5/HPF) Urine WBC (0-5/HPF) Urine Bacteria (None) Ur Culture Indicated? Micro UA Comment Nasal Screen MRSA (PCR) (Negative) 02/23/19 02/23/19 02/24/19 Range/Units 12:05 14:00 04:44 WBC (4.5-11.0) X10^3/uL RBC (4.0-5.2) X10^6/uL Hgb (12.0-16.0) g/dL Hct (36-46) % MCV (80-100) fL MCH (26-34) PG MCHC (30-36) % RDW (11.6-14.8) % Plt Count (150-400) X10^3/uL Neut % (Auto) (50-75) % Lymph % (Auto) (25-40) % [place] % (Auto) (3-14) % Eos % (Auto) (2-4) % Baso % (Auto) (0-2) % Neut # (Auto) (2564-9764) /uL Lymph # (Auto) (3084-9805) /uL [place] # (Auto) (0-900) /uL Eos # (Auto) (0-450) /uL Baso # (Auto) (0-100) /uL Sodium (137-145) mmol/L Potassium (3.4-5.1) mmol/L Chloride (98-107) mmol/L Carbon Dioxide (22-32) mmol/L BUN (7-17) mg/dL Creatinine (0.52-1.04) mg/dL Estimated GFR (>60) mL/min BUN/Creatinine Ratio (6-22) Glucose (80-110) mg/dL Calcium (8.4-10.2) mg/dL Total Bilirubin 0.5 (0.2-1.3) mg/dL Conjugated Bilirubin 0.0 (0.0-0.3) md/dL Unconjugated Bilirubin 0.4 (0.0-1.1) mg/dL AST 21 (14-36) IU/L ALT 25 (9-52) IU/L Alkaline Phosphatase 44 (38-126) U/L Total Creatine Kinase (30-135) U/L CK-MB (CK-2) CK-MB (CK-2) Rel Index Troponin I (0.01-0.034) ng/mL Total Protein 5.5 L (6.3-8.2) g/dL Albumin 3.1 L (3.5-5.0) g/dL Globulin 2.4 (1.7-4.1) g/dL Albumin/Globulin Ratio 1.3 (1.0-2.8) Amylase (30-110) U/L Lipase 68 D (23-300) U/L Urine RBC None seen (0-5/HPF) Urine WBC None seen (0-5/HPF) Urine Bacteria None seen (None) Ur Culture Indicated? Cult not indicated Micro UA Comment Microscopic normal Nasal Screen MRSA (PCR) Negative for mrsa (Negative) Point of care testing: Urine Dip Bedside Urine Glucose Negative Bedside Urine Bilirubin - Negative Bedside Urine Ketone ++ 40 Urine Specific [place] 1.025 Bedside Urine Occult Blood - Negative Bedside Urine pH 6.0 Bedside Urine Protein +/- 15 Bedside Urine Urobilinogen +/- 1mg Bedside Urine Nitrite - Negative Bedside Urine Leukocytes - Negative Esterase Discharge Plan Departure Patient Disposition: Admitted As Inpatient Clinical Impression: Cholelithiasis and acute cholecystitis with obstruction Discharge Date/Time: 02/23/19 13:55 Interventions: ED Discharge Assessment Last Done: 02/23/19 13:54 Admit Date/Time: 02/23/19 13:25 Admit Provider: Kris Cast <Sidra Hooks DO - Last Filed: 02/24/19 07:35> Cosign ED Attending Alexeyature Attestation: I was immediately available in the department for consultation. Documentation has been reviewed. I agree with assessment and plan.
[2019-02-23 11:35] LABS: Add Manual Diff / Slide Review NO; Basophils Absolute Auto 0 /uL (0-100); Basophils Percent Auto 0.4 % (0-2); Eosinophils Absolute Auto 0 /uL (0-450); Hematocrit 44.6 % (36-46); Hemoglobin 14.7 g/dL (12.0-16.0); Lymphocytes Absolute Auto 700 /uL (1100-4500); Lymphocytes Percent Auto 7.8 % (25-40); Mean Corpuscular HGB Conc 33.1 % (30-36); Mean Corpuscular Hemoglobin 30.2 PG (26-34); Mean Corpuscular Volume 91.4 fL (80-100); Monocytes Absolute Auto 500 /uL (0-900); Monocytes Percent Auto 5.5 % (3-14); Neutrophils Absolute Auto 7300 /uL (1500-7000); Neutrophils Percent Auto 86.3 % (50-75); Platelet Count 246 X10^3/uL (150-400); Red Blood Cell Count 4.88 X10^6/uL (4.0-5.2); Red Cell Distribution Width 13.1 % (11.6-14.8); White Blood Cell Count 8.5 X10^3/uL (4.5-11.0)
[2019-02-23] MEDS: SODIUM CHLORIDE 0.9% 1,000 ML 1000 ML IV (11:43)
[2019-02-23] MEDS: ONDANSETRON 4 MG/2 ML INJ IV (11:43)
[2019-02-23] MEDS: MAG HYDROX/ALUMINUM/SIMETH SUS 20 ML, LIDOCAINE VISCOUS 2% 15 ML PO (11:43)
[2019-02-23] MEDS: KETOROLAC 60 MG/2 ML VIAL 30 MG IV (11:43)
[2019-02-23 11:50] LABS: Alanine Aminotransferase 26 IU/L (9-52); Albumin 4.2 g/dL (3.5-5.0); Albumin Globulin Ratio 1.6 (1.0-2.8); Alkaline Phosphatase 55 U/L (38-126); Aspartate Aminotransferase 26 IU/L (14-36); BUN Creatinine Ratio 17.1 (6-22); Bilirubin Total 0.4 mg/dL (0.2-1.3); Blood Urea Nitrogen 12 mg/dL (7-17); Calcium 9.2 mg/dL (8.4-10.2); Carbon Dioxide 29 mmol/L (22-32); Chloride 103 mmol/L (98-107); Creatine Kinase 81 U/L (30-135); Estimated Glomerular Filt Rate > 60.0 mL/min (>60); Globulin 2.7 g/dL (1.7-4.1); Glucose 114 mg/dL (80-110); HEMOLYSIS < 15 (0-50); Lipase 1341 U/L (23-300); Potassium 3.8 mmol/L (3.4-5.1); Sodium 140 mmol/L (137-145); Total Protein 6.9 g/dL (6.3-8.2)
[2019-02-23 12:01] LABS: Troponin I < 0.012 ng/mL (0.01-0.034)
[2019-02-23 12:39] LABS: Amylase 97 U/L (30-110)
[2019-02-23 12:44] LABS: Bacteria Urine None Seen; RBC Urine None Seen (0-5/HPF); WBC Urine None Seen (0-5/HPF)
[2019-02-23 12:53] LABS: Culture Indicated Urine Cult Not Indicated; Urine Comments Microscopic Normal
[2019-02-23 13:04] VITALS: BP 163/64; PULSE 64; RESP 26; O2SAT 97
--- NOTE | 2019-02-23 13:48 | P.HP_ITS ---
History of Present Illness Date Patient Seen: 02/23/19 Time Patient Seen: 13:44 Chief complaint: nausea Narrative: 58-year-old white female patient with fairly sudden onset of upper abdominal pain this morning associated with some vomiting came to the emergency room where she is found to have acute pancreatitis with a lipase of 1300. She has normal liver chemistries. She also has a 2.7 cm gallstone in the neck of the gallbladder with wall thickening. Significantly the patient has had a previous sleeve gastrectomy for morbid obesity approximately 2 years ago. Patient History Medical History No chronic problems (Chronic) Surgical History History of sleeve gastrectomy (Resolved) Status post total hysterectomy and bilateral salpingo-oophorectomy (BSO) (Resolved) Social History Smoking Status: Current some day smoker Family & Social History Safety & Behavioral: Feels Safe in Current Yes Environment Been Physically Hurt or No Threatened By a Person Tobacco & Substance use: Smoking Status Current some day smoker alcohol intake frequency 0-2 drinks per day Substance Use Type does not use Meds Home Medications Medication Instructions Recorded Confirmed Type Calcium 1 tab PO DAILY 02/23/19 02/23/19 History Vitamin D3 1 tab PO DAILY 02/23/19 02/23/19 History aspirin 81 mg PO DAILY 02/23/19 02/23/19 History iron 1 tab PO DAILY 02/23/19 02/23/19 History Allergies Allergy/AdvReac Type Severity Reaction Status Date / Time No Known Drug Allergies Allergy Verified 02/23/19 11:11 Review of Systems Review of Systems All systems reviewed & are unremarkable except as noted in HPI and below Exam Vital Signs (past 8 hours): - 02/23/19 11:12 02/23/19 13:04 Temperature 98.7 F Pulse Rate 83 64 Respiratory Rate 20 26 H Blood Pressure 189/79 H Blood Pressure [Left Arm] 163/64 H Pulse Oximetry 97 97 Oxygen Delivery Method Room Air Narrative Exam Narrative: Patient is resting fairly comfortably in bed in the emergency department. She is not jaundiced. Ears nose and throat are unremarkable. Lungs are clear with no rales or wheezes Heart regular rhythm no murmur Abdomen is only mildly tender in the right subcostal area. there is no Napier sign. patient still has some morbid obesity. Remaining physicals otherwise unremarkable. Objective Labs Result Diagrams: 02/23/19 11:25 02/23/19 11:25 Labs: Laboratory Results - last 24 hr 02/23/19 02/23/19 02/23/19 11:25 11:25 11:25 WBC 8.5 RBC 4.88 Hgb 14.7 Hct 44.6 MCV 91.4 MCH 30.2 MCHC 33.1 RDW 13.1 Plt Count 246 Neut % (Auto) 86.3 H Lymph % (Auto) 7.8 L [place] % (Auto) 5.5 Eos % (Auto) 0.0 L Baso % (Auto) 0.4 Neut # (Auto) 7300 H Lymph # (Auto) 700 L [place] # (Auto) 500 Eos # (Auto) 0 Baso # (Auto) 0 Sodium 140 Potassium 3.8 Chloride 103 Carbon Dioxide 29 BUN 12 Creatinine 0.70 Estimated GFR > 60.0 BUN/Creatinine Ratio 17.1 Glucose 114 H Calcium 9.2 Total Bilirubin 0.4 AST 26 ALT 26 Alkaline Phosphatase 55 Total Creatine Kinase 81 CK-MB (CK-2) TNP CK-MB (CK-2) Rel Index TNP Troponin I < 0.012 Total Protein 6.9 Albumin 4.2 Globulin 2.7 Albumin/Globulin Ratio 1.6 Amylase 97 Lipase 1341 H Urine RBC Urine WBC Urine Bacteria Ur Culture Indicated? Micro UA Comment 02/23/19 12:05 WBC RBC Hgb Hct MCV MCH MCHC RDW Plt Count Neut % (Auto) Lymph % (Auto) [place] % (Auto) Eos % (Auto) Baso % (Auto) Neut # (Auto) Lymph # (Auto) [place] # (Auto) Eos # (Auto) Baso # (Auto) Sodium Potassium Chloride Carbon Dioxide BUN Creatinine Estimated GFR BUN/Creatinine Ratio Glucose Calcium Total Bilirubin AST ALT Alkaline Phosphatase Total Creatine Kinase CK-MB (CK-2) CK-MB (CK-2) Rel Index Troponin I Total Protein Albumin Globulin Albumin/Globulin Ratio Amylase Lipase Urine RBC None seen Urine WBC None seen Urine Bacteria None seen Ur Culture Indicated? Cult not indicated Micro UA Comment Microscopic normal Assessment & Plan Assessment & Plan narrative: Patient has gallstone pancreatitis. No evidence of common bile duct stones based on normal liver chemistries. She does have an elevated lipase of 1300. Plan is admission IV fluids IV antibiotic therapy repeat her liver chemistries and lipase amylase in the morning. Patient has understanding that she may have cholecystectomy on this admission but it may be delayed. This is somewhat determined based on the course of her pancreatitis.
[2019-02-23] MEDS: AMPICILLIN/SULBACTAM 1.5 GM 1.5 GM in SODIUM CHLORIDE 0.9% 100 ML IV (13:50)
[2019-02-23 13:54] VITALS: BP 153/60; BP 154/118; PULSE 54; PULSE 57; RESP 18; TEMP 37; O2SAT 96
--- NOTE | 2019-02-23 14:19 | PC.ADMIT ---
Admission Note: Patient arrived to room 105 via stretcher at 1345. Walked self from stretcher to room , steady on feet, no assistive devices needed. Alert and oriented x3. RA in the upper 90s, HR in the 50-60s, SBP in the 150s. Reports pain 2/10 to upper abdomen, declines pain meds at this time but is aware of their availability. Denies nausea. Cell phone, glasses, and clothing in room. Denies any valuables to lock up. No meds with patient. Oriented to room and to call light/bed/tv controls. Call light within reach. Instructed on fall risk and importance of calling prior to getting OOB - acknowledged understanding. The patient,Katherin Rizvi,58 y/o, was given written information regarding hospital policies, unit procedures and contact persons. Patient's smoking status: Current some day smoker. Vital Signs - 8 hr 02/23/19 11:12 02/23/19 13:04 02/23/19 13:54 Temperature 98.7 F 98.6 F Pulse Rate 83 64 54 L Respiratory Rate 20 26 H 18 Blood Pressure 189/79 H 154/118 H Blood Pressure [Left Arm] 163/64 H Pulse Oximetry 97 97 96
[2019-02-23 14:39] VITALS: BP 136/72; PULSE 62; O2SAT 96
[2019-02-23] MEDS: SODIUM CHLORIDE 0.9% 1,000 ML 84 ML IV (15:30)
[2019-02-23 16:20] VITALS: BP 153/57; PULSE 56; RESP 16; TEMP 36.7; O2SAT 95
[2019-02-23] MEDS: HYDROMORPHONE 0.5 MG INJ IV (16:27)
--- NOTE | 2019-02-23 16:45 | PC.NURSE ---
Addendum entered by Marissa Garcia R.N. 02/23/19 21:19: 2115 - Pt resting quietly. Reports mild nausea following po intake. Declines intervention at this time. Educated to NPO status at [place]. Discussed medication for pain and nausea. Pt verbalized understanding. Call light in reach. Original Note: 3605 - Pt c/o pain 4 of 10, requesting pain medication. I just don't want it to get as bad as it was this morning. Discussed pain medication, allergies, alternative therapies, and safety. SBA to bathroom. Pt denies lightheadedness or nausea. RX given for pain. Call light in reach.
[2019-02-23 16:53] VITALS: BMI 41.1
[2019-02-23] MEDS: AMPICILLIN/SULBACTAM 3 GM 3 GM in SODIUM CHLORIDE 0.9% 100 ML IV (19:43)
[2019-02-24] VITALS (17 sets, daily range): BP systolic 75–183; BP diastolic 42–73; PULSE 53–100; RESP 12–21; TEMP 36.2–37.8; O2SAT 93–97
--- NOTE | 2019-02-24 | PATH_ITS ---
[facility] Accession Number: [id number] . 01 Material submitted: . gallbladder - GALLBLADDER AND CONTENTS . 01 Clinical history: . NAUSEA . 02 Diagnosis: Gallbladder and Contents, Laparoscopic Cholecystectomy: Acute and chronic cholecystitis and cholelithiasis. One benign reactive cystic duct lymph node (0). MRV/02/28/2019 . 02 Electronically signed: . Katherin Dooley MD, Pathologist NPI- [id number] . 01 Gross description: . Received in formalin, labeled gallbladder and contents, is an intact gallbladder (length-11.5 cm, diameter-3.3 cm) with gallo-pink, smooth, shiny serosa and a patent cystic duct. A lymph node (2.2 x 1.1 x 0.4 cm) is identified. The lumen contains multiple dark brown, solid, firm, smooth calculi (6.0 x 4.1 x 1.5 cm in aggregate) with carolina crystalline cut surfaces. The mucosa is brown, smooth, and flat. The wall is up to 0.1 cm thick. No nodules, masses, or lesions are identified. Section code: (A1) cystic duct resection margin and two serial sections from the body; (A2) two longitudinal sections from the fundus; (A3-A4) one bisected lymph node. ([id number]) /FRR . 02 Pathologist provided ICD-10: K80.60 . 02 CPT . 205497 Performed at: 01 [facility] [address] [id number] MD Austin Wagner MD Phone: [phone] Performed at: 02 [facility] [place] [address] [place], [place] [id number] MD Sarita Wilson MD Phone: [phone]
[2019-02-24] MEDS: AMPICILLIN/SULBACTAM 3 GM 3 GM in SODIUM CHLORIDE 0.9% 100 ML IV ×3 (03:55→13:36)
[2019-02-24 05:15] LABS: Alanine Aminotransferase 25 IU/L (9-52); Albumin 3.1 g/dL (3.5-5.0); Albumin Globulin Ratio 1.3 (1.0-2.8); Alkaline Phosphatase 44 U/L (38-126); Aspartate Aminotransferase 21 IU/L (14-36); Bilirubin Total 0.5 mg/dL (0.2-1.3); Bilirubin Unconjugated 0.4 mg/dL (0.0-1.1); Globulin 2.4 g/dL (1.7-4.1); HEMOLYSIS < 15 (0-50); Lipase 68 U/L (23-300); Total Protein 5.5 g/dL (6.3-8.2)
[2019-02-24] MEDS: SODIUM CHLORIDE 0.9% 1,000 ML 84 ML IV (05:56)
--- NOTE | 2019-02-24 10:38 | PM.PN.1 ---
Subjective Date Patient Seen: 02/24/19 Time Patient Seen: 10:38 Interval history: Feeling improved this morning, slightly hungry Some persistent right upper quadrant pain, epigastric pain is largely resolved. Desires surgery this morning Exam Vital Signs (past 8 hours): - 02/24/19 05:01 02/24/19 07:26 Temperature 97.6 F 97.5 F L Pulse Rate 68 65 Respiratory Rate 16 18 Blood Pressure 148/63 H 157/64 H Pulse Oximetry 95 95 Oxygen Delivery Method Room Air Oxygen Flow Rate 0 Narrative Exam Narrative: Well-appearing in no acute distress Breathing comfortably on room air Regular rate and strong radial pulse Abdomen is soft nondistended there is a minimal amount of tenderness in the epigastrium and moderate amount tenderness in the right upper quadrant. No rebound no reflexive guarding Periphery is warm well perfused Objective Labs Result Diagrams: 02/23/19 11:25 02/23/19 11:25 Labs: Laboratory Results - last 24 hr 02/23/19 02/23/19 02/23/19 11:25 11:25 11:25 WBC 8.5 RBC 4.88 Hgb 14.7 Hct 44.6 MCV 91.4 MCH 30.2 MCHC 33.1 RDW 13.1 Plt Count 246 Neut % (Auto) 86.3 H Lymph % (Auto) 7.8 L [place] % (Auto) 5.5 Eos % (Auto) 0.0 L Baso % (Auto) 0.4 Neut # (Auto) 7300 H Lymph # (Auto) 700 L [place] # (Auto) 500 Eos # (Auto) 0 Baso # (Auto) 0 Sodium 140 Potassium 3.8 Chloride 103 Carbon Dioxide 29 BUN 12 Creatinine 0.70 Estimated GFR > 60.0 BUN/Creatinine Ratio 17.1 Glucose 114 H Calcium 9.2 Total Bilirubin 0.4 Conjugated Bilirubin Unconjugated Bilirubin AST 26 ALT 26 Alkaline Phosphatase 55 Total Creatine Kinase 81 CK-MB (CK-2) TNP CK-MB (CK-2) Rel Index TNP Troponin I < 0.012 Total Protein 6.9 Albumin 4.2 Globulin 2.7 Albumin/Globulin Ratio 1.6 Amylase 97 Lipase 1341 H Urine RBC Urine WBC Urine Bacteria Ur Culture Indicated? Micro UA Comment Nasal Screen MRSA (PCR) 02/23/19 02/23/19 02/24/19 12:05 14:00 04:44 WBC RBC Hgb Hct MCV MCH MCHC RDW Plt Count Neut % (Auto) Lymph % (Auto) [place] % (Auto) Eos % (Auto) Baso % (Auto) Neut # (Auto) Lymph # (Auto) [place] # (Auto) Eos # (Auto) Baso # (Auto) Sodium Potassium Chloride Carbon Dioxide BUN Creatinine Estimated GFR BUN/Creatinine Ratio Glucose Calcium Total Bilirubin 0.5 Conjugated Bilirubin 0.0 Unconjugated Bilirubin 0.4 AST 21 ALT 25 Alkaline Phosphatase 44 Total Creatine Kinase CK-MB (CK-2) CK-MB (CK-2) Rel Index Troponin I Total Protein 5.5 L Albumin 3.1 L Globulin 2.4 Albumin/Globulin Ratio 1.3 Amylase Lipase 68 D Urine RBC None seen Urine WBC None seen Urine Bacteria None seen Ur Culture Indicated? Cult not indicated Micro UA Comment Microscopic normal Nasal Screen MRSA (PCR) Negative for mrsa Assessment & Plan Assessment & Plan narrative: 58-year-old woman hospital day 2. Admitted for gallstone pancreatitis as well as large stone obstructing the neck of the gallbladder. In addition to the large stone there is sludge in the gallbladder. This morning her LFTs continue to be normal including a total bilirubin of 0.5 and ALT of 25, her amylase is normalized from 1341->68. Her pancreatic tenderness has improved substantially. Due to ongoing cholecystitis from an obstructing stone I think it is prudent to operate today. Her pancreatitis symptoms have largely resolved. Plan: Laparoscopic cholecystectomy today with possible IOC, possible conversion to open Continue ampicillin/sulbactam NPO Surgery scheduled for approximately noon Risks of surgery including bleeding, infection, injury to adjacent structures, injury to common bile duct with need for reconstruction, possibility of need to open all discussed Patient ready to proceed all questions answered Discharge today or tomorrow Quality VTE Deep Vein Thrombosis/Pulmonary Embolism Present on Admission: No
--- NOTE | 2019-02-24 10:51 | CM.DANOTE ---
Patient is a 58 year old female who was admitted on 02/23/19 for Acute Pancreatitis. Pt has [employer] for insurance and her PCP is Dr. Jony Guerrero. EMR was reviewed. Per MD, pt on IV fluids and IV-Abx and NPO for possible surgery. Per RN, pt scheduled for surgery for gallbladder this morning around 1000. Pt has supportive family bedside. Pt lives at home in [place] with her spouse and has local supportive family bedside. Pt is Independent with ADL's at baseline and does not anticipate any needs post surgery and states her family can provide assist if needed and transport home. SW needs unclear at this time. Plan: SW to follow closely after surgery today to determine any d/c planning needs and confirm pt safe for d/c home with spouse and family assist. JANEY Catalan Discharge Planning/Care Management CM Discharge Assessment Start: 02/24/19 10:48 Freq: Status: Active Protocol: Document 02/24/19 10:48 BF (Rec: 02/24/19 10:51 BF [id number]) Discharge Planning Assessment Assigned Margin Analyst JANEY Guerrero Advance Directives? No Advance Directives on File No History Provided By Patient Family Member Medical Record Has Patient been admitted in last 30 No days? Prior Living Arrangements House Household Members spouse Type of transporation used prior to Drives own vehicle admit Independent with ADL's Yes Is patient alert and oriented? Yes Caregiver for Another No Comment Pending surgical procedure today Barriers to Discharge No Discharge Plan Home Transportation Arrangement Family can likely provide transport at d/c. Referrals Initiated None needed Whiteboard Updated in Patient Room with Yes name and ext. # of Margin Analyst Review Status In Process Please Provide Date Initial DC 02/24/19 Assessment Was Performed Next Review Type Continued Stay Review
--- NOTE | 2019-02-24 12:56 | PC.NURSE ---
1254- Pt taken to PACU in no acute distress for pre op by RN/PHYSICS PROFESSOR. Abx and IVFs sent with pt. at bedside aware of plan.
[2019-02-24] MEDS: BUPIVACAINE 0.25% W/ EPI 30 ML VIAL INJ (14:14)
--- NOTE | 2019-02-24 14:30 | SUR.OPER ---
Supine on padded OR bed, head on pillow, arms secured on padded arm boards at <90 degrees abduction, legs uncrossed, safety belt at thigh, tape over blanket over lower legs, foot board.
[2019-02-24] MEDS: ACETAMINOPHEN IV 1,000 MG/100 ML VIAL 400 MG IV (14:35)
--- NOTE | 2019-02-24 15:40 | P.OP_ITS ---
Operative Date/Time/Diagnoses Date of procedure: 02/24/19 Time of procedure: 15:31 Post-op diagnosis: same Procedure & Clinicians Procedure: Laparoscopic cholecystectomy Same procedure as scheduled: Yes Indications: 58-year-old female presented to the emergency department with right upper quadrant and epigastric pain she had a lipase that was greater than 13,000. She was found to have a gallbladder was both sludge in large stones within it. There was a large stone impacting the gallbladder neck. Wall thickness was 4.2 mm. She was admitted overnight started on antibiotics and hydrated. Her epigastric pain abated. Her right upper quadrant pain however continued to be fairly significant. She was taken to the operating room. Of note her total bilirubin remained normal during the entire course of her hospitalization prior to surgery. Surgeon: Kilo Savage Click Yes if Unassisted: Yes Anesthesia Type: General Operative Notes Findings: Markedly inflamed gallbladder Anatomy clear -critical view of safety obtained Closure Type: primary Specimen(s): other (Gallbladder and contents) Estimated Blood Loss (mL): 10 Procedure in detail: Patient was taken to the operating room she was prepped and draped in the usual sterile fashion a time-out was completed. Entry into the abdomen was performed using Veress needle technique. Small wheal of local anesthetic was raised at lambert's point on the left subcostal margin small stab incision was made at the site. A Veress needle was advanced with a distinct click upon entering the abdomen. Aspirating the needle there was no succus or stool or blood. The saline drop test however was equivocal. The needle was withdrawn approximately 1 cm. At this point there was a confirmatory saline drop test. The needle was connected to the insufflation tubing and initial pressures were low. The abdomen was then insufflated to 15 mm of mercury without incident. A small vertically oriented incision was placed on the superior umbilical crown and using Visiport technique a 5 mm port was advanced through the layers of the abdominal wall until the dark space of the insufflated abdomen was entered. The Veress needle was visualized there was no bleeding or injury and was removed without incident. Two 5 mm ports were then placed in the right upper quadrant additional 11 mm port placed in the epigastrium. The gallbladder was readily visualized noted to be significantly thickened and inflamed. I was unable to easily grasp the infundibulum of the gallbladder due to its distention.. As a consequence a decompressive needle was advanced through the epigastric port being careful to avoid all internal viscera and used to puncture the fundus of the gallbladder. 60 mL of liquid contents of the gallbladder were aspirated. Decompressing the gallbladder was much easier to grasp and the fundus was graft closing the aspiration hole. The infundibulum the gallbladder was then retracted cephalad this revealed multiple adhesions between the duodenum omentum and the undersurface of the gallbladder. These were carefully lysed using Metzenbaum without heat. The infundibulum of the gallbladder was then grasped retracted laterally. Using hook cautery the parietal peritoneum on the medial lateral aspects of the gland was incised. With blunt dissection the gallbladder triangle was opened. Two structures became quite obvious in this area and both were easily traced back to the gallbladder itself. Interestingly the more inferior structure appeared to be the artery. This was confirmed to directly enter into the gallbladder it was windowed behind and then clipped and divided without incident. This left a single structure of the cystic duct entering directly into the gallbladder. This was clipped and divided as well with 3 clips seen to fully cross the duct left on the cystic duct stump. At this point the gallbladder was reflected out the gallbladder fossa without incident placed in Endo-Catch bag and later removed from the abdomen via the epigastric port. the gallbladder fossa as well as the the clips were confirmed to be in place and hemostasis was excellent. The gallbladder was then removed from the body via the epigastric port site which had to be significantly enlarged due to the large size of stones within t he gallbladder. The fascial defect was then closed using a suture Passer device an interrupted 0 Vicryl ties a total of 6 were used. Ports were then withdrawn under direct visualization. The abdomen was deinsufflated local anesthetic was infiltrated into the wounds. The wounds were copiously washed out and then skin was closed using 2 layers given the patient's obesity. The deep layer was 2 0 Vicryl interrupted deep dermal stitch. Final layer was subcuticular using monofilament absorbable suture. Skin glue was applied the patient was extubated brought to PACU without incident Tolerated the procedure well Complications: none Condition: stable Disposition: PACU Plan for aftercare: PACU and then home
[2019-02-24] MEDS: ONDANSETRON 4 MG/2 ML INJ IV (15:51)
--- NOTE | 2019-02-24 17:17 | PC.NURSE ---
Addendum entered by Marissa Garcia R.N. 02/24/19 18:36: 1800 - Pt out of bed, able to ambulate in the halls. Reports feeling better getting up. Continues to rate pain 5/10. Denies nausea. Second percolone tab given. Reviewed discharge instructions, Discussed pain medication. RX provided. IV d/c'd. 1835 - Pt discharged to home via wc, with spouse. Addendum entered by Marissa Garcia R.N. 02/24/19 17:21: 1720 - Pt sitting up. Sipping clear liquids. No nausea at this time. Educated to pain control. Pt verbalized understanding. Monitor. Original Note: 1615 - Pt to room from PACU. Reports mild nausea and pain 6 of 10 to RUQ. Lap. sites closed with skin glue. WNL. Ice pack in place. Encouraged slow PO intake. Supportive at bedside. Call light in reach.
[2019-02-24] MEDS: OXYCODONE IR 5 MG TABLET PO ×2 (17:33→18:11)
--- NOTE | 2019-02-25 08:45 | CM.DPC ---
DCP Discharge Home Per Surgeon, pt tolerated Lap Amanda yesterday 02/24/19 well and was stable to d/c home last night after SW shift. Per RN, pt's pain was controlled and pt was ambulating hallways and was agreeable to d/c home with spouse last night. Plan: Patient discharged home last night via spouse POV and no SW needs at this time. JANEY Catalan
== END 2019-02-24 18:35 | disposition home or self-care (01) | DRG 418 ==
LOC: ED 13:22 → AC 13:26 → ICU 13:47
PROVIDERS: Admitting Provider Surgery; Emergency Provider Internal Medicine; PCP Internal Medicine; Visit Provider Surgery
PROC: 0FT44ZZ Resection of Gallbladder, Percutaneous Endoscopic Approach (ICD-10-PCS; CPT 47562; principal; 2019-02-24 10:00)
DX: K85.10 Biliary acute pancreatitis without necrosis or infection (principal); K80.63 Calculus of gallbladder and bile duct with acute cholecystitis with obstruction; Z68.41 Body mass index [BMI] 40.0-44.9, adult; E66.01 Morbid (severe) obesity due to excess calories; F17.210 Nicotine dependence, cigarettes, uncomplicated
CPT/HCPCS: 36415; 36591; 47562; 74022; 76705; 80053; 80076; 81003; 81015; 82150; 82550; 83690; 84484; 85025; 87797; 88304; 93005; 96374; 96375; 99222; 99283; 99284; J0131; J0295; J0330; J1100; J1170; J1885; J2250; J2405; J2704; J3010

== ENCOUNTER 2019-03-05 10:19 | Emergency (ER) | payer OTHER, SELFPAY ==
[2019-03-05 10:20] VITALS: BP 266/61; PULSE 66; RESP 20; TEMP 36.8; O2SAT 98; BMI 41.5
[2019-03-05 11:20] VITALS: BP 180/103
--- NOTE | 2019-03-05 11:33 | ED.SKABFB ---
HPI - Skin/Abscess/Foreign Bdy <CORI Bonilla - Last Filed: 03/05/19 20:31> General Chief complaint: Skin/Abscess/Foreign Body Stated complaint: POSSIBLE INFECTION POST GALLBLADDER SURGERY Time Seen by Provider: 03/05/19 11:22 Source: patient Mode of arrival: ambulatory Limitations: no limitations History of Present Illness HPI narrative: 58-year-old female with history of a cholecystectomy on February 24, 2019, presents emergency department today complaining of redness and pruritus around all of her surgical wounds starting 2 days ago. She states that once the redness started she applied Benadryl and Neosporin but this only helped a little. She had a follow-up with her provider few days ago and this rash was not present. Patient reports associated increased tiredness. Denies fevers, chills, chest pain, shortness of breath, increased abdominal pain, nausea, vomiting, stool changes, or cognitive issues. Related Data Home Medications Medication Instructions Recorded Confirmed Calcium 1 tab PO DAILY 02/23/19 03/01/19 Vitamin D3 1 tab PO DAILY 02/23/19 03/01/19 aspirin 81 mg PO DAILY 02/23/19 03/01/19 ibuprofen 200 mg capsule 200 mg PO QID PRN 03/01/19 03/01/19 multivitamin capsule 1 cap PO DAILY 03/01/19 03/01/19 Previous Rx's Medication Instructions Recorded sulfamethoxazole-trimethoprim 1 tab PO BID 7 Days #14 tab 03/05/19 [Bactrim DS] Allergies Allergy/AdvReac Type Severity Reaction Status Date / Time hydrochlorothiazide AdvReac Mild Verified 03/01/19 11:58 Review of Systems <CORI Bonilla - Last Filed: 03/05/19 20:31> Review of Systems REVIEW OF SYSTEMS: GENERAL: Denies fever or chills. HENT: No head trauma, hearing loss or sore throat. EYES: No loss of vision, double vision, eye pain, or irritation. CARDIOVASCULAR: No chest pain or syncope. RESPIRATORY: No shortness of breath or cough. GASTROINTESTINAL: No nausea, vomiting, diarrhea, or constipation. GENITOURINARY: No flank pain or dysuria. MUSCULOSKELETAL: No pain, weakness, or deformities. INTEGUMENTARY: Complains of redness around surgical wounds, see HPI. NEURO: No numbness, tingling, memory loss, or confusion. PSYCH: No behavior or mood changes. PFSH <CORI Bonilla - Last Filed: 03/05/19 20:31> Medical History No chronic problems (Chronic) Surgical History History of sleeve gastrectomy (Resolved) Status post total hysterectomy and bilateral salpingo-oophorectomy (BSO) (Resolved) Family History (Updated 03/01/19 @ 12:04 by Debora Milan, FELI) Mother Hypertension Diabetes mellitus Father Hypertension Gallstones Sister Hypertension Diabetes mellitus Brother Diabetes mellitus Hypertension Social History (Updated 03/01/19 @ 12:04 by Debora Milan, FELI) marital status: household members: spouse occupational status: employed Smoking Status: Current some day smoker alcohol intake: current substance use type: does not use Family History Mother Hypertension Diabetes mellitus Father Hypertension Gallstones Sister Hypertension Diabetes mellitus Brother Diabetes mellitus Hypertension Social History marital status: household members: spouse occupational status: employed Smoking Status: Current some day smoker alcohol intake: current substance use type: does not use Exam <CORI Bonilla - Last Filed: 03/05/19 20:31> Initial Vital Signs Initial Vital Signs: Vital Signs Temperature 98.2 F 03/05/19 10:20 Pulse Rate 66 03/05/19 10:20 Respiratory Rate 20 03/05/19 10:20 Blood Pressure 266/61 H 03/05/19 10:20 Pulse Oximetry 98 03/05/19 10:20 PHYSICAL EXAMINATION: GENERAL: Well groomed, alert, and cooperative. Answers questions promptly and appropriately. Vital signs noted. HENT: Normocephalic, atraumatic. EYES: Conjunctiva pink, sclera white, no periorbital swelling. CARDIOVASCULAR: S1 and S2 sounds normal. Regular rate and rhythm, no murmurs, clicks, or bruits. No pedal edema. RESPIRATORY: Normal respiratory rate, trachea midline, airway patent. No stridor, nasal flaring or accessory muscle use. Lungs are clear in all [place] without wheeze, rhonchi, or crackles. GASTROINTESTINAL: Bowel sounds normoactive. Abdomen is soft, very slight tenderness in the right upper quadrant which is expected postop cholecystectomy. No organomegaly. MUSCULOSKELETAL: Normal gait and coordination. Equal tone and mass bilaterally. EXTREMITIES: CMS intact. Moves all extremities. SKIN: 2 cm in diameter erythema around all 5 surgical sites on her abdomen. No discharge from the wounds, surgical wounds remained closed, slight increased temperature to reddened area. No significant pain with palpation. No additional lesions. NEURO: Alert and Oriented X 3. Good coordination. No ataxia, or sensory deficits, or cognitive issues. PSYCH: Appropriate affect and mood. <Amrita Gilliam DO - Last Filed: 03/08/19 18:11> Initial Vital Signs Initial Vital Signs: Vital Signs Temperature 98.2 F 03/05/19 10:20 Pulse Rate 66 03/05/19 10:20 Respiratory Rate 20 03/05/19 10:20 Blood Pressure 266/61 H 03/05/19 10:20 Pulse Oximetry 98 03/05/19 10:20 Course <CORI Bonilla - Last Filed: 03/05/19 20:31> Consultations Consultation #1: Patient staffed with Dr. Gilliam. Vital Signs - 8 hr 03/05/19 10:20 Temperature 98.2 F Pulse Rate 66 Respiratory Rate 20 Blood Pressure 266/61 H Pulse Oximetry 98 <Amrita Gilliam DO - Last Filed: 03/08/19 18:11> Vital Signs - 8 hr 03/05/19 10:20 Temperature 98.2 F Pulse Rate 66 Respiratory Rate 20 Blood Pressure 266/61 H Pulse Oximetry 98 MDM - Skin/Abscess/Foreign Bdy <CORI Bonilla - Last Filed: 03/05/19 20:31> Medical Records Attestation: I reviewed the patient's medical records. Lab Data Attestation: I reviewed the patient's lab results. MDM Narrative Medical decision making narrative: Infection versus allergic reaction. While symptoms present are a little late for an allergic reaction from glue or stitches, it is odd that erythema was present around all of her incision sites. Patient stated that she did use Neosporin but this was after the redness did occur. If this is a true infection, she is at high risk for future complications due to her recent surgery and the location of the erythema. Patient treated with antibiotics to prevent further complications, antibiotics were chosen to cover MRSA as this was a surgical wound. Very strict return precautions were given to patient, strict follow-up instructions were discussed. Discharge Plan Departure Patient Disposition: Home Clinical Impression: Cellulitis Qualifiers: Site of cellulitis: trunk Site of cellulitis of trunk: abdominal wall Qualified Code(s): L03.311 - Cellulitis of abdominal wall Discharge Date/Time: 03/05/19 11:50 Interventions: ED Discharge Assessment Last Done: 03/05/19 11:50 Instructions: DI for Cellulitis -- Adult Activity Restrictions/Additional Instructions: Thank you for entrusting me with your care today. As discussed, it appears that he may have a small infection around your surgical wound. I prescribed an antibiotic please fill this and take it immediately. Call your surgeon within the next few days to schedule an appointment. Return to the emergency department if the redness continues to spread, you developed fevers or chills, chest pain, shortness of breath, or worsening abdominal pain. Prescriptions: New sulfamethoxazole-trimethoprim [Bactrim DS] 800-160 mg tablet 1 tab PO BID 7 Days Qty: 14 RF: 0 No Action multivitamin capsule 1 cap PO DAILY RF: 0 ibuprofen [Motrin IB] 200 mg capsule 200 mg PO QID PRNRF: 0 aspirin 81 mg Tablet,Delayed Release (Dr/Ec) 81 mg PO DAILY RF: 0 Calcium 1 tab PO DAILY RF: 0 Vitamin D3 1 tab PO DAILY RF: 0 Referrals: Jony Guerrero MD [Primary Care Provider] -
--- NOTE | 2019-03-05 12:25 | PC.NURSE ---
s/p cholecystecomy 9 days ago, developed redness and swelling around the incision sites onset 4 days ago, also with itching, denies fever and vomiting, +bm today. +slight abdominal preassure non radiating. pt alert and awake, cooperative with care, generalized skin warm dry, with redness and swelling anterior abdomin with blue bruising 11 o clock. no drainage noted.
== END 2019-03-05 11:50 | disposition home or self-care (01) ==
PROVIDERS: Emergency Provider Nurse Practitioner; PCP Internal Medicine
DX: L03.311 Cellulitis of abdominal wall (principal)
CPT/HCPCS: 99282; 99283

== ENCOUNTER → 2021-12-02 08:09 | Outpatient (CLI) | payer OTHER, SELFPAY ==
--- NOTE | 2021-12-02 | DI.MG.S_ITS ---
BILATERAL DIGITAL SCREENING MAMMOGRAM 3D/2D WITH CAD: 12/02/2021 CLINICAL: Routine screening. Family history of breast cancer. Comparison is made to exams dated: 11/22/2014 mammogram and 05/26/2012 mammogram - outside location. The tissue of both breasts is predominantly fatty. Current study was also evaluated with a Computer Aided Detection (CAD) system. No significant masses, calcifications, or other findings are seen in either breast. There has been no significant interval change. IMPRESSION: NEGATIVE There is no mammographic evidence of malignancy. A 1 year screening mammogram is recommended. This exam was interpreted at Station ID: [id number]. NOTE: For mammograms, a report in lay terms will be sent to the patient. Approximately 15% of breast malignancies will not be visualized mammographically. In the management of a palpable breast mass, a negative mammogram must not discourage biopsy of a clinically suspicious lesion. Electronically Signed By: Lisette nunn/carroll:12/02/2021 14:36:20 letter sent: Normal Exam ACR BI-RADS Category 1: Negative [id number]
== END ==
PROVIDERS: PCP Family Medicine; Referring Provider Family Medicine; Visit Provider Family Medicine
DX: Z12.31 Encounter for screening mammogram for malignant neoplasm of breast (principal); Z80.3 Family history of malignant neoplasm of breast
CPT/HCPCS: 77063; 77067

== ENCOUNTER 2023-08-06 07:06 | Day surgery (SDC) | payer OTHER, SELFPAY ==
[2023-08-06 07:23] VITALS: BP 157/85; PULSE 80; RESP 16; TEMP 36.7; O2SAT 95; BMI 42.9
[2023-08-06] MEDS: LACTATED RINGERS 1,000 ML 150 ML IV (07:37)
--- NOTE | 2023-08-06 08:11 | PM.HP.1 ---
History of Present Illness History of Present Illness Date Patient Seen: 08/06/23 Time Patient Seen: 08:11 Chief complaint: Screening Colonoscopy Narrative: Belkys is a 62-year-old woman who is here for colonoscopy. She does not know when her last 1 was but it could be 10 years. She has had polyps removed in the past. No family history of colon cancer. [facility] Medical History (Updated 08/06/23 @ 08:11 by Zachariah Salinas MD) No chronic problems Surgical History Status post total hysterectomy and bilateral salpingo-oophorectomy (BSO) History of sleeve gastrectomy Family History Mother Hypertension Diabetes mellitus Father Hypertension Gallstones Sister Hypertension Diabetes mellitus Brother Diabetes mellitus Hypertension Social History marital status: household members: spouse occupational status: employed Smoking Status: Current some day smoker alcohol intake: current substance use type: does not use Meds Home Medications and Allergies Home Medications Medication Instructions Recorded Confirmed Type Calcium 1 tab PO DAILY 02/23/19 08/06/23 History Vitamin D3 1 tab PO DAILY 02/23/19 08/06/23 History multivitamin 1 cap PO DAILY 03/01/19 08/06/23 History Allergies Allergy/AdvReac Type Severity Reaction Status Date / Time hydrochlorothiazide AdvReac Mild Verified 03/01/19 11:58 Exam Vital Signs (past 8 hours): - 08/06/23 07:23 Temperature 98.1 F Pulse Rate 80 Respiratory Rate 16 Blood Pressure 157/85 H Pulse Oximetry 95 Oxygen Delivery Method Room Air Oxygen Delivery Method Room Air Const General: No acute distress Assessment & Plan Assessment and plan (1) History of colon polyps: Status: Acute Plan We reviewed the risks and benefits of colonoscopy for colon cancer screening and history of polyps and she would like to proceed.
--- NOTE | 2023-08-06 08:43 | PM.OP.COLON ---
Operative Date/Time/Diagnoses Date of procedure: 08/06/23 Time of procedure: 08:43 Pre-op diagnosis: History of polyps Post-op diagnosis: same Procedure & Clinicians Study performed: Colonoscopy Same procedure as scheduled: Yes Surgeon: Zachariah Salinas Procedure Notes Procedure in detail: Surgeon: Zachariah Salinas MD Anesthesia: Brooks Brooke CRNA Procedure: The patient was brought to the endoscopy suite, placed in left lateral decubitus position. The patient was connected to monitoring devices. A time-out was performed. Sedation was administered. Once the patient was adequately sedated, a digital rectal exam was performed and was normal. The scope was then inserted and advanced to the cecum where the appendiceal orifice was identified and photographed. The scope was then slowly withdrawn over greater than 6 minutes. The mucosa was thoroughly inspected. There were rare scattered diverticula. The scope was retroflexed in the rectum. There were some mild internal hemorrhoids. The scope was straightened and removed. The patient was awakened and brought to recovery. Scope withdrawal time: 7 minutes Sedation time: 16 minutes EBL: 0 Findings: Rare diverticula and internal hemorrhoids Post-procedure Recommendations: Colonoscopy in 10 years Disposition: PACU
[2023-08-06 08:45] VITALS: BP 99/40; PULSE 78; RESP 12; TEMP 36.8; O2SAT 95
[2023-08-06 08:49] VITALS: BP 107/53; PULSE 72; RESP 18; O2SAT 96
[2023-08-06 08:57] VITALS: BP 106/56; PULSE 73; RESP 18; TEMP 36.4; O2SAT 96
[2023-08-06 09:01] VITALS: BP 116/69; PULSE 69; RESP 20; O2SAT 97
== END 2023-08-06 09:17 | disposition home or self-care (01) ==
PROVIDERS: PCP Family Medicine; Referring Provider Surgery; Visit Provider Surgery
PROC: 0DJD8ZZ Inspection of Lower Intestinal Tract, Via Natural or Artificial Opening Endoscopic (ICD-10-PCS; CPT 45378; principal; 2023-08-06 08:15)
DX: Z12.11 Encounter for screening for malignant neoplasm of colon (principal); K57.30 Diverticulosis of large intestine without perforation or abscess without bleeding; K64.8 Other hemorrhoids
CPT/HCPCS: 45378; J2704

== ENCOUNTER → 2023-09-16 14:27 | Outpatient (CLI) | payer MEDICARE, OTHER, SELFPAY ==
--- NOTE | 2023-09-16 | DI.MG.S_ITS ---
BILATERAL DIGITAL SCREENING MAMMOGRAM 3D/2D WITH CAD: 09/16/2023 CLINICAL: Routine screening. Family history of breast cancer. Comparison is made to exams dated: 12/02/2021 mammogram - [facility], 11/22/2014 mammogram, and 05/26/2012 mammogram - outside location. There are scattered areas of fibroglandular density in both breasts (category b / 25%-50% glandular tissue). Current study was also evaluated with a Computer Aided Detection (CAD) system. No significant masses, calcifications, or other findings are seen in either breast. There has been no significant interval change. IMPRESSION: NEGATIVE There is no mammographic evidence of malignancy. A 1 year screening mammogram is recommended. Based on the Tyrer Cuzick model (a risk assessment model) the patient's lifetime risk is 5.3% and her 10 year risk is 2.5%. According to the ACR, ACS, and NCCN guidelines, an annual breast MRI exam along with mammogram is recommended if the patient's lifetime risk is 20% or greater. This exam was interpreted at Station ID: [id number]. NOTE: For mammograms, a report in lay terms will be sent to the patient. Approximately 15% of breast malignancies will not be visualized mammographically. In the management of a palpable breast mass, a negative mammogram must not discourage biopsy of a clinically suspicious lesion. Electronically Signed By: Fortino champagne/carroll:09/16/2023 21:10:42 letter sent: Normal Exam ACR BI-RADS Category 1: Negative [id number]
--- NOTE | 2023-09-16 | DI.CT.S_ITS ---
PROCEDURE: CT LUNG LOW DOSE SCREENING INDICATIONS: ROUTINE SCREENING TECHNIQUE: Noncontrast 2.0-2.5 mm thick sections acquired from the pulmonary apices to the posterior costophrenic angles. 7 mm thick axial MIP, and 5 mm coronal and sagittal reformats were then acquired. For radiation dose reduction, the following was used: automated exposure control, adjustment of mA and/or kV according to patient size. COMPARISON: None. FINDINGS: Image quality: Diagnostic. Lower Neck: No enlarged lymph nodes. Thyroid: No thyroid nodules which require sonographic follow up, per consensus guidelines. Axillae: No enlarged lymph nodes. Chest Wall: Unremarkable. Bones: Unremarkable. Lungs and Pleura: No pneumothorax or pleural effusions. Scattered pulmonary micro nodules. For example, the 3 mm nodule in the medial right middle lobe (series 3, image 176), and 3 mm nodule in the lateral right upper lobe (series 3, image 107). Heart: Heart size is normal. No pericardial effusion. Moderate to severe coronary artery calcifications for age. Mitral valve calcifications. Thoracic Vessels: The aorta and pulmonary arteries demonstrate normal size. Mediastinum and Zainab: No enlarged lymph nodes. Esophagus: No wall thickening. No hiatal hernia. Upper Abdomen: Gastric sleeve surgery. Cholecystectomy. IMPRESSION: No suspicious pulmonary nodules. LUNG-RADS 2; continued annual screening, if eligible. Clinically Significant Non-pulmonary Findings: Marked coronary artery calcifications for age. Consider cardiology referral. Dictated by: Juancarlos Sorensen M.D. on 09/16/2023 at 15:26 Approved by: Juancarlos Sorensen M.D. on 09/16/2023 at 15:28
--- NOTE | 2023-09-16 | DI.RAD.S_ITS ---
Bone Density Report Name: ARIK BOWDEN Age: 63 Sex: Female Ethnicity: White Date of : 1960 Indication: postmenopausal; screening for osteoporosis; Referring Provider: UNSPECIFIED Study: Bone densitometry was performed. Exam Date: September 16, 2023 Accession number: [id number] Bone Density: Region BMD T-score Z-score Classification AP Spine(L1-L4) 1.177 1.2 2.9 Normal Femoral Neck (Left) 0.913 0.6 2.1 Normal Total Hip (Left) 1.068 1.0 2.3 Normal Femoral Neck (Right) 0.855 0.1 1.6 Normal Total Hip (Right) 1.015 0.6 1.8 Normal Total Hip Mean 1.042 0.8 2.1 Normal World Health Organization criteria for BMD impression classify patients as: Normal (T-score at or above -1.0), Osteopenia (T-score between -1.0 and -2.5), or Osteoporosis (T-score at or below -2.5). 10-year Fracture Risk: FRAX not reported because: All T-scores for Spine Total, Hip Total, Femoral Neck at or above -1.0 Impression: The patient has normal bone mass. Discussion: BONE DENSITY IS ABOVE THE MINIMUM DESIRABLE LEVEL AT ALL SKELETAL SITES TESTED. This patient's bone mineral density is above the minimum desirable level (T-score -1.0 or better) at all sites measured. The patient should follow a healthful lifestyle (good nutrition with adequate calcium and vitamin D, and appropriate weight-bearing exercise). Follow-Up: Consider repeating this study in 5 years or sooner if there is some new clinical indication. Reported by: JERRY ABEBE MD on 09/16/2023 3:01:00 PM.
== END ==
PROVIDERS: PCP Nurse Practitioner Family; Referring Provider Nurse Practitioner Family; Visit Provider Nurse Practitioner Family
DX: Z12.2 Encounter for screening for malignant neoplasm of respiratory organs (principal); Z12.31 Encounter for screening mammogram for malignant neoplasm of breast; Z13.820 Encounter for screening for osteoporosis; Z80.3 Family history of malignant neoplasm of breast; R92.323 Mammographic fibroglandular density, bilateral breasts; N95.8 Other specified menopausal and perimenopausal disorders; F17.210 Nicotine dependence, cigarettes, uncomplicated; I25.10 Atherosclerotic heart disease of native coronary artery without angina pectoris
CPT/HCPCS: 71271; 77063; 77067; 77080

== ENCOUNTER 2024-05-25 12:10 | Day surgery (SDC) | payer MEDICARE, OTHER, SELFPAY ==
--- NOTE | 2024-05-25 | PATH_ITS ---
[facility] Accession Number: [id number] No. of containers..02 Tissue . 01 Material submitted: . PART A: gastrointestinal site - GASTRIC PART B: esophagus - ESOPHAGUS . 01 Clinical history: . B: RULE OUT AREC'S . 01 Diagnosis: Part A: GASTRIC: Reactive gastropathy. No Helicobacter organisms identified. No intestinal metaplasia, dysplasia, or malignancy identified. . Part B: ESOPHAGUS: Squamocolumnar junctional mucosa with goblet cell (Arce's) metaplasia. No dysplasia identified. . Specimen Comments: The features are consistent with Arce's esophagus in the right clinical setting. Correlation with the endoscopic appearance is recommended for further evaluation. [facility] 05/30/20241747 Local . 01 Electronically signed: . Austin Wagner MD, Pathologist NPI- [id number] . 01 Gross description: . Part A: GASTRIC: Received in formalin are 2 fragment(s) of nobles, soft tissue measuring 0.1 x 0.1 x 0.1 cm to 0.3 x 0.2 x 0.2 cm submitted entirely in 1 cassette(s) . Part B: ESOPHAGUS: Received in formalin are 2 fragment(s) of nobles, soft tissue measuring 0.1 x 0.1 x 0.1 cm to 0.2 x 0.2 x 0.2 cm submitted entirely in 1 cassette(s) /[facility] 05/30/20241747 Local . 01 Microscopic: . Part A: GASTRIC: An immunohistochemical stain was performed to evaluate for Helicobacter organisms and is negative. The control stains appropriately. * This test was developed and its performance characteristics determined by [employer]. It has not been cleared or approved by the U.S. Food and Drug Administration. The FDA has determined that such clearance or approval is not necessary. This test is used for clinical purposes. It should not be regarded as investigational or for research. . 01 Pathologist provided ICD-10: K22.70, K29.60 . 01 CPT . 468589, 436602, E13005 Specimen Comment: A courtesy copy of this report has been sent to [phone] Performed at: [address] [facility] [address], [place], [place] [id number] MD Austin Wagner MD Phone: [phone]
[2024-05-25 13:00] VITALS: BP 184/84; PULSE 57; RESP 18; TEMP 36.2; O2SAT 98
--- NOTE | 2024-05-25 13:09 | P.HP_ITS ---
History of Present Illness History of Present Illness Date Patient Seen: 05/25/24 Chief complaint: EGD Narrative: GE reflux with occasional sputum production containing blood PFSH Medical History (Updated 08/06/23 @ 08:11 by Zachariah Salinas MD) No chronic problems Surgical History Status post total hysterectomy and bilateral salpingo-oophorectomy (BSO) History of sleeve gastrectomy Family History Mother Hypertension Diabetes mellitus Father Hypertension Gallstones Sister Hypertension Diabetes mellitus Brother Diabetes mellitus Hypertension Social History marital status: household members: spouse occupational status: employed Smoking Status: Current some day smoker alcohol intake: current substance use type: does not use Meds Home Medications and Allergies Home Medications Medication Instructions Recorded Confirmed Type Calcium 1 tab PO DAILY 02/23/19 05/25/24 History Vitamin D3 1 tab PO DAILY 02/23/19 05/25/24 History multivitamin 1 cap PO DAILY 03/01/19 05/25/24 History omeprazole 20 mg capsule,delayed 20 mg PO QAM 05/25/24 05/25/24 History release Allergies Allergy/AdvReac Type Severity Reaction Status Date / Time hydrochlorothiazide AdvReac Mild Verified 05/25/24 13:12 Exam Vital Signs (past 8 hours): - 05/25/24 13:00 Temperature 97.2 F L Pulse Rate 57 L Respiratory Rate 18 Blood Pressure 184/84 H Pulse Oximetry 98 Oxygen Delivery Method Room Air Oxygen Delivery Method Room Air Narrative Exam Narrative: Oropharynx free of lesions Chest clear to auscultation percussion Cardiac exam reveals no S3 or murmur Assessment & Plan Assessment & Plan narrative: GE reflux and occasional bloody sputum. Rule out GERD. Risks, benefits, al ternatives have been explained. Time-Based Coding :: [TOTAL MINUTES] spent with patient and on the chart (including review of chart, obtaining history, exam, reviewing outside data, placing orders, documenting exam and treatment plan, and counseling patient) on [DATE].
--- NOTE | 2024-05-25 13:16 | PM.OP.EGD ---
Operative Date/Time/Diagnoses Date of procedure: 05/25/24 Pre-op diagnosis: See indication and findings Procedure & Clinicians Study performed: EGD Indications: GE reflux with occasional bloody sputum production Surgeon: Silas Gunn Procedure Notes Procedure in detail: After informed consent was obtained the patient was placed in left lateral decubitus position. The video upper scope was placed into the oropharynx and with the patient's help swallowed into the esophagus. The esophagus stomach and duodenum were carefully examined. On withdrawal, retroflexed view the GE junction was performed. The scope was removed. The patient tolerated the procedure well. Blood loss none Sedation mac Findings 1. One tongue of probable Buckley's esophagus from 33-30 cm. This is best seen on retroflexed view and best biopsied in the that position. 2. Wide open GE reflux was possible sliding hiatal hernia 3. Patchy gastric erythema biopsies taken to rule out Helicobacter 4. Normal duodenal bulb and sweep Will be in touch regarding biopsies. If this proves to be Buckley's she will need follow-up EGD in 3 years. She should stay on current medications.
[2024-05-25] MEDS: LACTATED RINGERS 1,000 ML 42 ML IV (13:21)
--- NOTE | 2024-05-25 13:31 | SUR.OPER ---
EGD SCOPE 048
[2024-05-25 13:54] VITALS: BP 140/59; PULSE 74; RESP 16; TEMP 36.1; O2SAT 94
[2024-05-25 13:59] VITALS: BP 130/75; PULSE 70; RESP 16; O2SAT 97
[2024-05-25 14:04] VITALS: BP 173/62; PULSE 61; RESP 14; O2SAT 97
[2024-05-25 14:08] VITALS: BP 204/51; PULSE 58; RESP 18; TEMP 36.4; O2SAT 99
[2024-05-25 14:23] VITALS: BP 184/74; PULSE 62; RESP 17; O2SAT 95
--- NOTE | 2024-05-25 14:27 | SUR.PHASEII ---
Pt's blood pressure was increased with this visit. Instructed her to make an appointment with her primary care Regarding her high blood pressure.
== END 2024-05-25 14:32 | disposition home or self-care (01) ==
PROVIDERS: PCP Nurse Practitioner Family; Referring Provider Internal Medicine Gastroenterology; Visit Provider Internal Medicine Gastroenterology
PROC: 0DJ08ZZ Inspection of Upper Intestinal Tract, Via Natural or Artificial Opening Endoscopic (ICD-10-PCS; CPT 43235; principal; 2024-05-25 13:30)
DX: K21.9 Gastro-esophageal reflux disease without esophagitis (principal); K31.89 Other diseases of stomach and duodenum; K22.70 Barrett's esophagus without dysplasia
CPT/HCPCS: 43239; J2704

== ENCOUNTER → 2024-10-13 11:04 | Outpatient (CLI) | payer MEDICARE, OTHER, SELFPAY ==
--- NOTE | 2024-10-13 11:06 | DI.CT.S_ITS ---
PROCEDURE: CT SINUS SCREEN WO CON INDICATIONS: CHRONIC PANSINUSITIS/POSTNASAL DRIP TECHNIQUE: Noncontrast 3.0 mm axial images acquired from the frontal sinuses to the mid-sella, with coronal and sagittal reformats. For radiation dose reduction, the following was used: automated exposure control, adjustment of mA and/or kV according to patient size. COMPARISON: None. FINDINGS: Image quality: Excellent. Maxillary Sinuses: No bony remodeling or destruction. Sinuses are clear. Ethmoid Air Cells: No bony remodeling or destruction. Sinuses are clear. Sphenoid Sinuses: No bony remodeling or destruction. Sinuses are clear. Frontal Sinuses: No bony remodeling or destruction. Sinuses are clear. Ostiomeatal Complexes: Ostiomeatal complexes are patent but narrowed by bilateral Santiago cells. Miscellaneous: Visualized intra-orbital contents are normal. No gurmeet bullosa or paradoxical turbinate curvature. Leftward nasal septal deviation superiorly and rightward deviation inferiorly with spurring. IMPRESSION: No significant sinus disease. Dictated by: Delano Woods M.D. on 10/13/2024 at 14:10 Approved by: Delano Woods M.D. on 10/13/2024 at 14:13
== END ==
PROVIDERS: PCP Nurse Practitioner Family; Referring Provider Otolaryngology; Visit Provider Otolaryngology
DX: J32.4 Chronic pansinusitis (principal); R09.82 Postnasal drip
CPT/HCPCS: 70486

== ENCOUNTER 2025-07-13 20:50 | Emergency (ER) | payer MEDICARE, OTHER, SELFPAY ==
[2025-07-13 21:00] VITALS: BP 177/90; PULSE 94; RESP 17; TEMP 36.7; O2SAT 98; BMI 42.2
--- NOTE | 2025-07-13 21:03 | ED.FEMALEGU ---
HPI - Female Genitourinary General Chief complaint: Urogenital-Female Stated complaint: Poss UTI Time Seen by Provider: 07/13/25 20:52 History of Present Illness HPI Narrative: 64-year-old female past medical history of hypertension comes into the ED from home for evaluation of urinary symptoms, states that she has been having frequency dysuria ongoing persistent the past day, states very similar to when she has had history of urinary tract infections in the past. She denies any other symptoms at this time Related Data Home Medications ?Medication ?Instructions ?Recorded ?Confirmed Calcium 1 tab PO DAILY 02/23/19 07/13/25 Vitamin D3 1 tab PO DAILY 02/23/19 07/13/25 multivitamin 1 cap PO DAILY 03/01/19 07/13/25 omeprazole 20 mg capsule,delayed 20 mg PO QAM 05/25/24 07/13/25 release losartan 50 mg tablet (Cozaar) 50 mg PO DAILY 07/13/25 07/13/25 Previous Rx's ?Medication ?Instructions ?Recorded cefuroxime axetil 500 mg tablet 500 mg PO Q12H 1 week #14 tabs 07/13/25 Allergies Allergy/AdvReac Type Severity Reaction Status Date / Time hydrochlorothiazide AdvReac Mild Verified 07/13/25 20:59 Review of Systems Review of Systems Narrative: General: Denies fever, chills, weight loss HEENT: Denies headache, eye drainage, eye irritation, head trauma, sore throat, voice change Cardiovascular: Denies any chest pain, palpitations, tachycardia Respiratory: Denies any shortness of breath, cough, wheeze, stridor GI/: Positive here urinary frequency, dysuria Denies any abdominal pain, nausea, vomiting, diarrhea, bright red blood per rectum, melanotic stools, urinary retention hematuria MSK: Denies any joint pain, muscle pains, swelling Skin: Denies any rashes, lesions, discoloration Neuro: Denies any headache, lightheadedness, dizziness, fainting, weakness Psych: Denies SI/HI Patient History Medical History (Updated 07/13/25 @ 21:04 by Shaquille Garibay DO) No chronic problems Surgical History Status post total hysterectomy and bilateral salpingo-oophorectomy (BSO) History of sleeve gastrectomy Family History Mother Hypertension Diabetes mellitus Father Hypertension Gallstones Sister Hypertension Diabetes mellitus Brother Diabetes mellitus Hypertension Exam Narrative Exam Narrative: General: Cooperative, well-developed, not in acute distress HEENT: Normocephalic, atraumatic, PERRLA, normal sclera, eyelids normal Neck: Active full range of motion, atraumatic Chest: Normal to inspection, negative crepitus, no overlying erythema ecchymosis Respiratory: Normal respiratory effort, not in acute respiratory distress, clear to auscultation bilaterally negative cough, wheeze, tachypnea, rhonchi, rales Cardiology: Regular rate rhythm negative gallop, murmur, rubs GI/: No tenderness to palpation, soft, non rigid, normal to inspection, exam deferred MSK: Full active range of motion in all 4 extremities, atraumatic, no tenderness to palpation of any bony prominences Skin: No rashes or lesions noted Neuro: Alert awake oriented x3, moves all 4 extremities spontaneously, cranial nerves intact, able to answer all questions appropriately follows commands appropriately Psych: Cooperative, negative suicidal or homicidal ideations Initial Vital Signs Initial Vital Signs: Vital Signs Temperature 98.1 F 07/13/25 21:00 Pulse Rate 94 H 07/13/25 21:00 Respiratory Rate 17 07/13/25 21:00 Blood Pressure 177/90 H 07/13/25 21:00 Pulse Oximetry 98 07/13/25 21:00 Oxygen Delivery Method Room Air 07/13/25 21:00 Course Vital Signs Vital signs: Vital Signs - 8 hr 07/13/25 21:00 Temperature 98.1 F Pulse Rate 94 H Respiratory Rate 17 Blood Pressure 177/90 H Pulse Oximetry 98 Oxygen Delivery Method Room Air MDM - Female Genitourinary MDM Narrative Medical decision making narrative: 64-year-old female with a past medical history of hypertension presenting for urinary symptoms, she describes it with urinary frequency dysuria ongoing persistent for the past 2 days. States that she has been trying to take some [id number] medication without any relief. Urinalysis consistent acute urinary tract infection, patient was given dose of antibiotics here and sent home with prescription. She was given strict return precautions verbalized understanding agrees to being discharged home with outpatient follow up Discharge Plan Departure Patient Disposition: Home Clinical Impression: Urinary tract infection Instructions: DI for Urinary Tract Infection (UTI) Activity Restrictions/Additional Instructions: Please follow up with your primary care doctor as needed Please read the discharge instructions sheet carefully and bring all papers to all doctor follow-up visits, as it may contain information that your doctor may want to see. Disease processes change and evolve, if your symptoms worsen or if you develop any new symptoms that are concerning to you please return for evaluation. Your evaluation today does not show any evidence of any life-threatening/serious illnesses requiring admission to the hospital or surgery. Please follow-up with your doctor for re-evaluation in approximately 1 day. Seek immediate medical attention for any worrisome symptoms. *If you do not have a primary care provider please contact the [facility] Resource line at [phone]. They will ask some questions about your medical history and help get you set up with a doctor in the community. Prescriptions: New cefuroxime axetil 500 mg tablet 500 mg PO Q12H 7 Days Qty: 14 0RF No Action multivitamin capsule 1 cap PO DAILY omeprazole 20 mg capsule,delayed release(DR/EC) 20 mg PO QAM Calcium 1 tab PO DAILY Vitamin D3 1 tab PO DAILY losartan [Cozaar] 50 mg tablet 50 mg PO DAILY Referrals: Katelyn Mandel ARNP [Primary Care Provider, Family Practice] Stand Alone Forms: Patient Portal/API
== END 2025-07-13 21:53 | disposition home or self-care (01) ==
PROVIDERS: Emergency Provider Student in an Organized Health Care Education/Training Program
DX: N39.0 Urinary tract infection, site not specified (principal)
CPT/HCPCS: 81003; 81015; 87077; 87086; 87186; 99283